=== PATIENT | female | born 1955 | race Caucasian/White ===

== ENCOUNTER 2016-05-10 20:03 | Outpatient (CLI) | payer MEDICAID | END 2016-05-10 20:04 | disposition home or self-care (01) | DX: E78.5 Hyperlipidemia, unspecified (principal); E11.9 Type 2 diabetes mellitus without complications; E03.9 Hypothyroidism, unspecified ==

== ENCOUNTER 2016-11-29 14:38 | Outpatient (CLI) | payer MEDICAID ==
[2016-11-29 19:13] LABS: CALCIUM 8.9 mg/dL (8.5-10.3); CREATININE 1.1 mg/dL (0.4-1.0); POTASSIUM 4.1 mmol/L (3.5-5.0)
[2016-11-29 20:09] LABS: HEMOGLOBIN A1C 0.84 g/dL
== END 2016-11-29 14:39 | disposition home or self-care (01) ==
LOC: LAB.N 14:38
PROVIDERS: ATTEND Family Medicine
DX: E11.9 Type 2 diabetes mellitus without complications (principal); E03.9 Hypothyroidism, unspecified
CPT/HCPCS: 36415; 80048; 83036; 84443

== ENCOUNTER 2016-11-30 09:06 | Outpatient (CLI) | payer MEDICAID ==
--- NOTE | 2016-12-01 13:31 | Mammography Report ---
DIGITAL SCREENING MAMMOGRAM: 11/30/2016 CLINICAL INDICATION: A 61-year-old nulliparous patient for screening. COMPARISON: 10/2015, 09/2014, 08/2013, 09/2012, 09/2011. TECHNIQUE: Routine CC and MLO projections were obtained of the breasts. FINDINGS: Scattered fibroglandular tissue is present within the breasts. There are no dominant jack s, suspicious microcalcifications, or secondary signs of malignancy. In comparison to the previous st udies, there are no significant changes. ASSESSMENT: NO MAMMOGRAPHIC EVIDENCE OF MALIGNANCY. NO SIGNIFICANT INTERVAL CHANGES. RECOMMENDATION: Screening mammography is recommended annually. BI-RADS category 1 - negative. STANDARD QUALIFYING STATEMENTS 1. This examination was reviewed with the aid of Computed-Aided Detection (CAD). 2. A negative or benign imaging report should not delay biopsy if clinically suspicious findings are present. Consider surgical consultation if warranted. More than 5% of cancers are not identified by i maging. 3. Dense breasts may obscure an underlying neoplasm. JOB #: [id number] EXT JOB #:[id number]
== END 2016-11-30 09:07 | disposition home or self-care (01) ==
LOC: DI 09:06
PROVIDERS: ATTEND Family Medicine
DX: Z12.31 Encounter for screening mammogram for malignant neoplasm of breast (principal); Z00.00 Encounter for general adult medical examination without abnormal findings
CPT/HCPCS: 77067

== ENCOUNTER 2017-10-05 08:00 | Outpatient (CLI) | payer MEDICAID ==
[2017-10-05 18:32] LABS: BASOPHILS % (AUTO) 0.7 %; EOSINOPHILS # (AUTO) 0.1 10^3/uL (0.0-0.7); EOSINOPHILS % (AUTO) 1.3 %; HGB - HEMOGLOBIN 12.7 g/dL (12.0-16.0); LYMPHOCYTES # (AUTO) 1.5 10^3/uL (1.5-3.5); LYMPHOCYTES % (AUTO) 24.6 %; MEAN CORPUSCULAR HEMOGLOBIN 28.2 pg (27.0-31.0); MEAN CORPUSCULAR HGB CONC 33.3 g/dL (32.0-36.0); MEAN CORPUSCULAR VOLUME 84.5 fL (81.0-99.0); MEAN PLATELET VOLUME 9.2 fL (7.9-10.8); MONOCYTES # (AUTO) 0.4 10^3/uL (0.0-1.0); MONOCYTES % (AUTO) 7.1 %; NEUTROPHILS # (AUTO) 4.1 10^3/uL (1.5-6.6); NEUTROPHILS % (AUTO) 66.3 %; PLT - PLATELET COUNT 210 10^3/uL (130-450); RED BLOOD COUNT 4.49 10^6/uL (4.20-5.40); RED CELL DISTRIBUTION WIDTH 13.9 % (12.0-15.0); WHITE BLOOD COUNT 6.2 x10^3/uL (4.8-10.8)
[2017-10-05 18:56] LABS: ALBUMIN 3.8 g/dL (3.2-5.5); ALBUMIN/GLOBULIN RATIO 1.3 (1.0-2.2); BILIRUBIN,TOTAL 0.7 mg/dL (0.2-1.0); CALCIUM 9.1 mg/dL (8.5-10.3); CREATININE 1.1 mg/dL (0.4-1.0); TOTAL PROTEIN 6.8 g/dL (6.7-8.2)
[2017-10-05 19:01] LABS: HB2 TOTAL 13.5 g/dL; HEMOGLOBIN A1C 1.01 g/dL
[2017-10-05 19:10] LABS: THYROID STIMULATING HORMONE 1.1 uIU/mL (0.34-5.60)
[2017-10-05 19:12] LABS: FREE T4 (FREE THYROXINE) 1.09 ng/dL (0.58-1.64)
== END 2017-10-05 23:59 | disposition home or self-care (01) ==
LOC: LAB.N 08:00
PROVIDERS: ATTEND Family Medicine
DX: E11.22 Type 2 diabetes mellitus with diabetic chronic kidney disease (principal); N18.3 Chronic kidney disease, stage 3 (moderate); E03.9 Hypothyroidism, unspecified
CPT/HCPCS: 36415; 80053; 83036; 84439; 84443; 85025

== ENCOUNTER 2017-12-03 11:27 | Outpatient (CLI) | payer MEDICAID ==
--- NOTE | 2017-12-04 15:37 | Mammography Report ---
Reason: SCREENING MAMMO Procedure Date: 12/03/2017 Accession Number: [id number] / [id number] Procedure: MGN - Screening Mammo Dig Bilat CPT Code: FULL RESULT: EXAM: Screening Mammo Dig Bilat DATE: 12/03/2017 11:49 AM CLINICAL HISTORY: 62 year-old nulliparous female with history of early menses. TECHNIQUE: Bilateral CC and MLO views were obtained. COMPARISON: 11/30/2016, 10/18/2015, 09/10/2014. FINDINGS: The breasts demonstrate diffuse fatty replacement bilaterally. No suspicious masses, clustered microcalcifications, or regions of architectural distortion are identified. IMPRESSION: Negative examination RECOMMENDATION: Routine annual screening unless otherwise clinically indicated. BIRADS CATEGORY 1: Negative STANDARD QUALIFYING STATEMENTS: 1. This examination was reviewed with the aid of Computer-Aided Detection (CAD). 2. A negative or benign imaging report should not delay biopsy if clinically suspicious findings are present. Consider surgical consultation if warrented. More than 5% of cancers are not identified by imaging. 3. Dense breasts may obscure an underlying neoplasm.
== END 2017-12-03 11:28 | disposition home or self-care (01) ==
LOC: DI.N 11:27
PROVIDERS: ATTEND Radiology Diagnostic Radiology
DX: Z12.31 Encounter for screening mammogram for malignant neoplasm of breast (principal)
CPT/HCPCS: 77067

== ENCOUNTER 2018-01-08 11:15 | Outpatient (CLI) | payer MEDICAID ==
[2018-01-08 19:15] LABS: HB2 TOTAL 13.9 g/dL; HEMOGLOBIN A1C 0.77 g/dL; HEMOGLOBIN A1C % 7.2 % (4.6-6.2)
[2018-01-08 19:16] LABS: ALBUMIN 4.2 g/dL (3.2-5.5); ALBUMIN/GLOBULIN RATIO 1.4 (1.0-2.2); ALKALINE PHOSPHATASE 66 IU/L (42-121); ALT ALANINE AMINOTRANSFERASE 27 IU/L (10-60); AST ASPARTATE AMINOTRANSFERASE 20 IU/L (10-42); BILIRUBIN,TOTAL 0.7 mg/dL (0.2-1.0); BUN - BLOOD UREA NITROGEN 23 mg/dL (6-20); CALCIUM 9.5 mg/dL (8.5-10.3); CARBON DIOXIDE - CO2 28 mmol/L (21-32); CHLORIDE 104 mmol/L (101-111); CHOL/HDL RATIO 3.1 (<4.4); CHOLESTEROL 151 mg/dL; CREATININE 1.1 mg/dL (0.4-1.0); GFR - MDRD 50 (>89); GLUCOSE 121 mg/dL (70-100); HDL CHOLESTEROL 48 mg/dL; LDL CHOLESTEROL,CALCULATED 70 mg/dL; LDL/HDL RATIO 1.5 (<4.4); SODIUM 140 mmol/L (135-145); TOTAL PROTEIN 7.3 g/dL (6.7-8.2); VLDL CHOLESTEROL 33 mg/dL
== END 2018-01-08 11:16 | disposition home or self-care (01) ==
LOC: LAB.WCP 11:15
PROVIDERS: ATTEND Family Medicine
DX: E78.5 Hyperlipidemia, unspecified (principal); E11.9 Type 2 diabetes mellitus without complications
CPT/HCPCS: 36415; 80053; 80061; 83036; 83721

== ENCOUNTER 2018-04-11 14:23 | Outpatient (CLI) | payer MEDICAID ==
[2018-04-11 19:33] LABS: CALCIUM 9.2 mg/dL (8.5-10.3); CREATININE 1.2 mg/dL (0.4-1.0)
[2018-04-11 19:42] LABS: HB2 TOTAL 13.7 g/dL; HEMOGLOBIN A1C 0.8 g/dL; HEMOGLOBIN A1C % 7.5 % (4.6-6.2)
[2018-04-11 19:51] LABS: THYROID STIMULATING HORMONE 1.08 uIU/mL (0.34-5.60)
[2018-04-11 19:53] LABS: FREE T4 (FREE THYROXINE) 1.03 ng/dL (0.58-1.64)
== END 2018-04-11 23:59 | disposition home or self-care (01) ==
LOC: LAB.N 14:23
PROVIDERS: ATTEND Nurse Practitioner
DX: E11.22 Type 2 diabetes mellitus with diabetic chronic kidney disease (principal); N18.3 Chronic kidney disease, stage 3 (moderate); E03.9 Hypothyroidism, unspecified; E55.9 Vitamin D deficiency, unspecified
CPT/HCPCS: 36415; 80048; 82306; 83036; 84439; 84443

== ENCOUNTER 2018-07-11 08:00 | Outpatient (CLI) | payer MEDICAID ==
[2018-07-11 19:25] LABS: ALBUMIN/GLOBULIN RATIO 1.4 (1.0-2.2); ALKALINE PHOSPHATASE 74 IU/L (42-121); ALT ALANINE AMINOTRANSFERASE 37 IU/L (10-60); AST ASPARTATE AMINOTRANSFERASE 25 IU/L (10-42); BILIRUBIN,TOTAL 1.1 mg/dL (0.2-1.0); BUN - BLOOD UREA NITROGEN 16 mg/dL (6-20); CALCIUM 9.2 mg/dL (8.5-10.3); CARBON DIOXIDE - CO2 24 mmol/L (21-32); CHLORIDE 103 mmol/L (101-111); CHOL/HDL RATIO 2.9 (<4.4); CHOLESTEROL 140 mg/dL; CREATININE 1.1 mg/dL (0.4-1.0); GFR - MDRD 50 (>89); GLUCOSE 137 mg/dL (70-100); HDL CHOLESTEROL 48 mg/dL; LDL CHOLESTEROL,CALCULATED 59 mg/dL; LDL/HDL RATIO 1.2 (<4.4); SODIUM 137 mmol/L (135-145); TOTAL PROTEIN 6.8 g/dL (6.7-8.2); VLDL CHOLESTEROL 33 mg/dL
[2018-07-11 19:30] LABS: CREATININE,URINE 175.1 mg/dL; MICROALBUM/CREATININE RATIO,UR 14.3 ug/mg (<30.0); MICROALBUMIN,URINE 2.5 mg/dL (0-300.0)
[2018-07-11 20:02] LABS: HB2 TOTAL 14.2 g/dL; HEMOGLOBIN A1C 0.97 g/dL; HEMOGLOBIN A1C % 8.4 % (4.6-6.2)
== END 2018-07-11 23:59 | disposition home or self-care (01) ==
LOC: LAB.N 08:00
PROVIDERS: ATTEND Nurse Practitioner
DX: E11.9 Type 2 diabetes mellitus without complications (principal)
CPT/HCPCS: 36415; 80053; 80061; 82043; 82570; 83036; 83721; 84443

== ENCOUNTER 2018-07-15 08:00 | Outpatient (CLI) | payer MEDICAID | END 2018-07-15 23:59 | disposition home or self-care (01) | LOC: LAB.N 08:00 | PROVIDERS: ATTEND Nurse Practitioner | DX: E55.9 Vitamin D deficiency, unspecified (principal) | CPT/HCPCS: 36415; 82306; 82652 ==

== ENCOUNTER 2018-07-23 11:53 | Outpatient (CLI) | payer MEDICAID ==
--- NOTE | 2018-07-23 12:30 | XRAY Report ---
Reason: PLANTAR FASCITIS Procedure Date: 07/23/2018 Accession Number: [id number] / [id number] Procedure: XRN - Foot 3 View LT CPT Code: FULL RESULT: EXAM: LEFT FOOT RADIOGRAPHY EXAM DATE: 07/23/2018 12:13 PM. CLINICAL HISTORY: PLANTAR FASCITIS. COMPARISON: 04/13/2015 2:01 PM. TECHNIQUE: 3 views. FINDINGS: Moderate posterior calcaneal and plantar calcaneal bone spurs. No other bony abnormality. Negative for fracture. Joints: Normal. No subluxations. Soft Tissues: Normal. No soft tissue swelling. IMPRESSION: 1. Moderately large posterior calcaneal and plantar calcaneal bone spurs. 2. Otherwise negative examination. No acute osseous abnormality. RADIA
== END 2018-07-23 11:54 | disposition home or self-care (01) ==
LOC: DI.N 11:53
PROVIDERS: ATTEND Nurse Practitioner
DX: M77.32 Calcaneal spur, left foot (principal)

== ENCOUNTER 2018-10-24 08:00 | Outpatient (CLI) | payer MEDICAID ==
[2018-10-24 18:54] LABS: BASOPHILS # (AUTO) 0.1 10^3/uL (0.0-0.1); BASOPHILS % (AUTO) 1.1 %; EOSINOPHILS # (AUTO) 0.1 10^3/uL (0.0-0.7); HGB - HEMOGLOBIN 12.4 g/dL (12.0-16.0); LYMPHOCYTES # (AUTO) 1.7 10^3/uL (1.5-3.5); LYMPHOCYTES % (AUTO) 29.9 %; MEAN CORPUSCULAR HEMOGLOBIN 28.1 pg (27.0-31.0); MEAN PLATELET VOLUME 11.2 fL (7.9-10.8); MONOCYTES # (AUTO) 0.4 10^3/uL (0.0-1.0); MONOCYTES % (AUTO) 7.7 %; NEUTROPHILS # (AUTO) 3.3 10^3/uL (1.5-6.6); NEUTROPHILS % (AUTO) 58.8 %; PLT - PLATELET COUNT 231 10^3/uL (130-450); RED BLOOD COUNT 4.41 10^6/uL (4.20-5.40); RED CELL DISTRIBUTION WIDTH 13.2 % (12.0-15.0); WHITE BLOOD COUNT 5.6 x10^3/uL (4.8-10.8)
[2018-10-24 19:08] LABS: HB2 TOTAL 12.9 g/dL; HEMOGLOBIN A1C 0.76 g/dL; HEMOGLOBIN A1C % 7.5 % (4.6-6.2)
[2018-10-24 19:13] LABS: CREATININE,URINE 171.8 mg/dL; MICROALBUMIN,URINE 2.4 mg/dL (0-300.0)
[2018-10-24 19:21] LABS: ALBUMIN 4.1 g/dL (3.2-5.5); ALBUMIN/GLOBULIN RATIO 1.5 (1.0-2.2); ALKALINE PHOSPHATASE 62 IU/L (42-121); ALT ALANINE AMINOTRANSFERASE 26 IU/L (10-60); AST ASPARTATE AMINOTRANSFERASE 16 IU/L (10-42); BILIRUBIN,TOTAL 0.7 mg/dL (0.2-1.0); BUN - BLOOD UREA NITROGEN 23 mg/dL (6-20); CALCIUM 9.2 mg/dL (8.5-10.3); CARBON DIOXIDE - CO2 24 mmol/L (21-32); CHLORIDE 108 mmol/L (101-111); CHOL/HDL RATIO 2.9 (<4.4); CHOLESTEROL 142 mg/dL; CREATININE 1.1 mg/dL (0.4-1.0); GFR - MDRD 50 (>89); GLUCOSE 113 mg/dL (70-100); HDL CHOLESTEROL 49 mg/dL; LDL CHOLESTEROL,CALCULATED 70 mg/dL; LDL/HDL RATIO 1.4 (<4.4); SODIUM 142 mmol/L (135-145); TOTAL PROTEIN 6.8 g/dL (6.7-8.2); VLDL CHOLESTEROL 23 mg/dL
== END 2018-10-24 23:59 | disposition home or self-care (01) ==
LOC: LAB.N 08:00
PROVIDERS: ATTEND Physician Assistant Medical
DX: E11.9 Type 2 diabetes mellitus without complications (principal); I10 Essential (primary) hypertension
CPT/HCPCS: 36415; 80053; 80061; 82043; 82570; 83036; 83721; 84443; 85025

== ENCOUNTER 2018-12-12 11:35 | Outpatient (CLI) | payer MEDICAID ==
--- NOTE | 2018-12-12 15:55 | Mammography Report ---
Reason: SCREENING MAMMO Procedure Date: 12/12/2018 Accession Number: [id number] / [id number] Procedure: MGN - Screening Mammo Dig Bilat CPT Code: FULL RESULT: EXAM: Screening Mammo Dig Bilat DATE: 12/12/2018 12:00 PM CLINICAL HISTORY: Routine screening TECHNIQUE: (B) - Bilateral CC and MLO views were obtained. COMPARISON: 12/03/2017, 11/30/2016 and 10/18/2015 PARENCHYMAL PATTERN: (A) - The breasts demonstrate scattered fibroglandular densities bilaterally. FINDINGS: No significant interval change. There are no suspicious masses, calcifications, or areas of distortion. IMPRESSION: Negative examination. BI-RADS category 1. RECOMMENDATION: (ANNUAL) - Recommend routine annual screening mammography. BI-RADS CATEGORY: (1) - Negative. STANDARD QUALIFYING STATEMENTS: 1. This examination was not reviewed with the aid of Computer-Aided Detection (CAD). 2. A negative or benign imaging report should not preclude biopsy if clinically suspicious findings are present. 3. Dense breasts may obscure an underlying neoplasm. 4. This examination was reviewed without the aid of 3D breast imaging (tomosynthesis).
== END 2018-12-12 11:36 | disposition home or self-care (01) ==
LOC: DI.N 11:35
DX: Z12.31 Encounter for screening mammogram for malignant neoplasm of breast (principal)
CPT/HCPCS: 77067

== ENCOUNTER 2019-01-07 15:32 | Outpatient (CLI) | payer MEDICAID ==
[2019-01-07 16:23] VITALS: BP 135/90
--- NOTE | 2019-01-07 16:23 | SLEEP CARE CONSULTATION ---
Information from patient questionnaire entered by Laly Silverio. I have reviewed and concur with the information entered by Laly Silverio. This document represents the service I personally performed and the decisions made by me, Darren Armjio MD, [facility]. History of Present Illness Reason for Visit: New patient Chief Complaint: reports: Insomnia, Unrefreshed sleep, Frequent awakenings at night Duration of Symptoms: 12 years Usual bedtime: [id number] Time it takes to fall asleep: 30-120 minutes Snores at night: No Observed to quit breathing while asleep: No Number of times waking at night: 2-3 Reasons for waking at night: reports: Other (unknown reasons) Toss, Turn, or Twitch while sleeping: Yes Recalls having dreams: Yes Usually gets out of bed at: 1200 Feels refreshed in the morning: No Morning headache: Yes (sometimes) Sleepy or fatigued during the day: Yes (sometimes) Ever fallen asleep while driving: No Takes day naps: No Dreams during day naps: No Prior sleep studies: No Additional HPI information: I had the pleasure of seeing Ms. Ren today regarding the possibility of her having a sleep disorder. As you know, she is a 63 year old lady who complains of insomnia since she got . She reports difficulty falling asleep at the beginning of the night and waking up frequently during the night. The patient tells me that she normally goes to bed around 1 2 am, and it takes her approximately 30 - 120 minutes to fall asleep. She has not been told that she snores loudly and irregularly at night. She has never been observed to stop breathing in her sleep. However, she sleeps alone. She can recall waking up on the average of 2 - 3 times during the night. Most of the time she wakes up because of unknown reasons. She has never awakened because of her own snoring, choking, or having to gasp for air. There is a lot of tossing and turning in her sleep. No somniloquy (sleep talking) or somnambulism (sleep walking). Generally she can recall having dreams. In the morning she usually gets up out of the bed around 11 a.m. noon, not feeling refreshed nor rested. She usually does have a morning headache. During the day she does not feel sleepy. Her score on Valders Sleepiness Scale is 1 out of 24. She has never fallen asleep while driving nor has had any accident due to sleepiness. She usually does not take naps during the day. She reports having impaired concentration during the day. Subjective Initial Valders Sleepiness Scale score: 1 Past Medical History Past Medical History: reports: Hypertension, Diabetes, Hypothyroidism, Other (kidney stones, high cholesterol, low vitamin d, ongoing sinus issues; s/p two sinus surgeries) Social History The patient's occupation is not employed. Patient is and lives in [place]. Have you smoked in the past 12 months: No Alcohol use: No Caffeine use: Yes Caffeine amount and frequency: 1 pepsi/day Family History Family history of sleep disordered breathing: No Allergies and Home Medications Drug allergies reviewed: Yes Home medication list reviewed: Yes Allergy and home medication list: Meds: levothyroxine, glimipiride, lisinopril, allopurinol, rosuvastatin, prazosin, montelukast, melatonin, fluticason nasal spray, and insulin Review of Systems Weight loss over past 5 years: 30 Cardiovascular: reports: high blood pressure Respiratory: denies: shortness of breath, wheeze, sputum production, chronic cough, other Gastrointestinal: denies: heartburn, difficulty swallowing, nausea, vomitting, diarrhea, abdominal pain, other Urinary: denies: incontinence, frequency, urgency, impotence, other Neurological: denies: headaches, seizure, head trauma, disorientation, speech dysfunction, gait or balance problems, fainting or unconsciousness, other Psychiatric: denies: Attention Deficit Hyperactivity, anxiety, depression, mood disorder, claustrophobia, other Ear/Nose/Throat: reports: sinus problems Endocrine: reports: thyroid disease Musculoskeletal: denies: joint pain, neck pain, back pain, joint swelling, muscle pain or cramping, mobility problems, other Immunologic: denies: sneezing, rash, itching, allergies to food or environment, other Physical Exam Vital signs obtained and entered by: DR. Armijo Blood Pressure: 135/90 Cuff size: regular Heart Rate: 98 O2 Saturation: 83 Height: 5 ft 5.5 in Weight: 290 lb Body Mass Index: 47.5 BMI Classification: Obesity Class 3 Neck circumference: 15 Mood/affect: normal HEENT: No craniofacial malformation Nostrils: patent to airflow Turbinates: normal Septum: midline Mouth and throat: narrow oropharynx Soft palate: long Hard palate: normal Uvula: normal Uvula visualization: 50% Mallampati Class II Tongue: normal in size Tonsils: absent bilaterally Chin and jaw: Micrognathia Neck: normal w/o lymphadenopathy or thyromegaly Heart: regular rate and rhythm Lungs: clear bilaterally Abdomen: soft Extremities: no edema or clubbing Neurologic: intact Impression and Plan IMPRESSION: 1. Suspected Obstructive Sleep Apnea-Hypopnea Syndrome, as suggested by history of frequent awakenings during the night. Narrow oropharynx and obesity are common predisposing factors for obstructive sleep apnea-hypopnea syndrome. Pathophysiology of sleep-disordered breathing was discussed. I recommend proceeding to polysomnography to confirm the diagnosis and to assess severity. If she has significant sleep disordered breathing, a manual CPAP titration study will also be performed to find the optimal treatment pressure. I informed the patient of what the sleep studies involve and after some discussion, she agreed to proceed. 2. Delayed sleep phase syndrome, causing sleep onset insomnia. Because she wakes up at noon, I advised her to not go to bed until 4 am, assuming the normal sleep requirement of 8 hours a night. The patient, however, would like to get up earlier at 10 pm. I then instructed her to set the alarm clock at that time and not wake up any later. She is to also go outside to be in the sun for half an hour as soon as she wakes up. Then at night, she may go to bed at 2 am. Plan: 1. Schedule polysomnography and return in 1 to 2 weeks after the study to discuss result and initiate therapy. 2. Maintain a regular wake up time and spend no more than 8 hours in bed at night. Avoid naps. 3. Attempt to lose weight. I spent 100% of this 20 minute visit face to face with the patient with greater than 50% of this was spent time counseling the patient and coordination of care.
== END 2019-01-07 15:33 | disposition home or self-care (01) ==
LOC: SC 15:32
PROVIDERS: ATTEND Internal Medicine Pulmonary Disease
DX: G47.8 Other sleep disorders (principal); G47.21 Circadian rhythm sleep disorder, delayed sleep phase type; G47.00 Insomnia, unspecified; E66.9 Obesity, unspecified; Z68.42 Body mass index [BMI] 45.0-49.9, adult
CPT/HCPCS: 99203; 99212

== ENCOUNTER 2019-01-30 13:44 | Outpatient (CLI) | payer MEDICAID ==
[2019-01-30 19:44] LABS: HB2 TOTAL 13.7 g/dL; HEMOGLOBIN A1C 0.88 g/dL
== END 2019-01-30 13:45 | disposition home or self-care (01) ==
LOC: LAB.N 13:44
PROVIDERS: ATTEND Physician Assistant Medical
DX: E11.9 Type 2 diabetes mellitus without complications (principal)
CPT/HCPCS: 36415; 83036

== ENCOUNTER 2019-03-11 19:34 | Outpatient (CLI) | payer MEDICAID | END 2019-03-11 19:35 | disposition home or self-care (01) | LOC: SC 19:34 | PROVIDERS: ATTEND Internal Medicine Pulmonary Disease | DX: G47.61 Periodic limb movement disorder (principal) | CPT/HCPCS: 95810 ==

== ENCOUNTER 2019-04-01 09:31 | Outpatient (CLI) | payer MEDICAID ==
--- NOTE | 2019-04-01 13:31 | XRAY Report ---
Reason: MICROSCOPIC HEMATURIA/PRE OP Procedure Date: 04/01/2019 Accession Number: [id number] / [id number] Procedure: XR - Chest 2 View X-Ray CPT Code: 77257 Final Report FULL RESULT: EXAM: CHEST RADIOGRAPHY EXAM DATE: 04/01/2019 09:58 AM. CLINICAL HISTORY: Microscopic hematuria/pre op. COMPARISON: None. TECHNIQUE: 2 views. FINDINGS: Lungs/Pleura: No focal opacities evident. No pleural effusion. No pneumothorax. Normal volumes. Mediastinum: Heart and mediastinal contours are unremarkable. Other: None. IMPRESSION: No acute cardiopulmonary abnormality. RADIA
== END 2019-04-01 09:32 | disposition home or self-care (01) ==
LOC: DI 09:31
PROVIDERS: ATTEND Urology
DX: Z01.818 Encounter for other preprocedural examination (principal); R31.29 Other microscopic hematuria; Z87.442 Personal history of urinary calculi; E66.01 Morbid (severe) obesity due to excess calories; Z68.42 Body mass index [BMI] 45.0-49.9, adult
CPT/HCPCS: 36415; 71046; 80048; 85025; 93005

== ENCOUNTER 2019-04-01 09:39 | Outpatient (CLI) | payer MEDICAID ==
[2019-04-01 10:00] LABS: BASOPHILS # (AUTO) 0.1 10^3/uL (0.0-0.1); BASOPHILS % (AUTO) 0.7 %; EOSINOPHILS # (AUTO) 0.1 10^3/uL (0.0-0.7); EOSINOPHILS % (AUTO) 1.8 %; LYMPHOCYTES % (AUTO) 27.9 %; MEAN CORPUSCULAR HEMOGLOBIN 27.7 pg (27.0-31.0); MEAN CORPUSCULAR HGB CONC 32.5 g/dL (32.0-36.0); MEAN CORPUSCULAR VOLUME 85.3 fL (81.0-99.0); MEAN PLATELET VOLUME 10.4 fL (7.9-10.8); MONOCYTES # (AUTO) 0.6 10^3/uL (0.0-1.0); NEUTROPHILS # (AUTO) 4.3 10^3/uL (1.5-6.6); NEUTROPHILS % (AUTO) 60.8 %; PLT - PLATELET COUNT 223 10^3/uL (130-450); RED BLOOD COUNT 4.69 10^6/uL (4.20-5.40); WHITE BLOOD COUNT 7.1 x10^3/uL (4.8-10.8)
[2019-04-01 10:13] LABS: CALCIUM 9.1 mg/dL (8.5-10.3); CREATININE 1.1 mg/dL (0.4-1.0)
== END 2019-04-01 09:40 | disposition home or self-care (01) ==
LOC: LAB 09:39
PROVIDERS: ATTEND Urology
DX: Z87.442 Personal history of urinary calculi (principal); R31.29 Other microscopic hematuria; E66.01 Morbid (severe) obesity due to excess calories; Z68.42 Body mass index [BMI] 45.0-49.9, adult
CPT/HCPCS: 36415; 80048; 85025

== ENCOUNTER 2019-04-08 10:10 | Outpatient (CLI) | payer MEDICAID ==
--- NOTE | 2019-04-08 12:45 | SLEEP CARE CONSULTATION ---
Information from patient questionnaire entered by Laly Silverio. I have reviewed and concur with the information entered by Laly Silverio. This document represents the service I personally performed and the decisions made by me, Darren Armijo MD, [facility]. History of Present Illness Initial Watton Sleepiness Scale score: 1 Current Watton Sleepiness Scale score: 0 Additional HPI information: HPI: returned for follow up of the sleep study she had on 03/11/19. The polysomnography showed that the patient had slightly reduced sleep efficiency due to several awakenings after the sleep onset. The sleep architecture was abnormal for sleep fragmentation and reduced amount of time spent in REM sleep. Respiratory monitoring showed no significant sleep disordered breathing (AHI = 3.1) mild hypoxia (katya oxygen saturation of 85% but only 0.06% to the total sl eep time was spent with oxygen saturation below 90%). The patient did not sleep supine during this study (supine AHI = 0; non-supine = 3.14). Snore was moderate to loud in intensity. There was moderate periodic leg movement of sleep contributing to the sleep fragmentation. Cardiac rhythm was normal sinus rhythm without significant arrhythmia. No abnormal behavior (parasomnia) observed during the night. The patient was informed of these findings. I explained to her that moderate periodic leg movement of sleep. The patient reports occasional restless leg sensation at night but is not sure that it causes insomnia. Allergies and Home Medications Drug allergies reviewed: Yes Home medication list reviewed: Yes Review of Systems Review of systems same as previous: Yes Physical Exam Weight: 290 lb Impression and Plan IMPRESSION: 1. Periodic leg movement of sleep, moderate, with occasional restless leg syndrome. The cause of periodic leg movement of sleep is typically unknown. Few known causes are iron deficiency, renal failure, and selective serotonin reuptake inhibitors. Iron and ferritin levels are recommended in addition to the routine blood work. We discussed treatment with a dopamine agonist but the patient does not like the side effects. 2. Circadian rhythm disorder causing insomnia. The patient has delayed sleep phase syndrome and also takes long naps during the day. She is not motivated enough to have a set schedule. I reassured her that overall she is getting adequate sleep because her Watton Sleepiness Scale score is 0. PLAN: 1. Primary care provider may want to check ferritin and iron levels. 2. Continue to avoid sleeping supine. 3. Return for follow up on as needed basis. If later on, she has to sleep part of the night on her back, she should be retested for sleep-disordered breathing. I spent 100% of the 15 minute visit [id number] with the patient with greater than 50% of this was spent time counseling the patient and coordination of care. I spent 100% of this visit face to face with the patient with greater than 50% of this was spent time counseling the patient and coordination of care.
== END 2019-04-08 10:11 | disposition home or self-care (01) ==
LOC: SC 10:10
PROVIDERS: ATTEND Internal Medicine Pulmonary Disease
DX: G47.61 Periodic limb movement disorder (principal); G47.21 Circadian rhythm sleep disorder, delayed sleep phase type
CPT/HCPCS: 99212; 99213

== ENCOUNTER 2019-04-14 06:05 | Day surgery (SDC) | payer MEDICAID ==
[2019-04-14] MEDS ORDERED: CIPROFLOXACIN 400 MG/200 ML 200 ML IV ONE (06:37)
[2019-04-14] MEDS ORDERED: LACTATED RINGERS 1,000 ML IV ONE ×2 (06:42→09:52)
[2019-04-14] MEDS ORDERED: SCOPOLAMINE PATCH TOP ONE (07:18)
--- NOTE | 2019-04-14 07:24 | ANESTHESIA ---
Pre-Anesthesia VS, & Labs - Diagnosis bladder tumor - Procedure TURBT Vital Signs: Temp Pulse Resp BP Pulse Ox 36.4 C L 66 16 155/113 H 99 04/14/19 06:48 04/14/19 06:48 04/14/19 06:48 04/14/19 06:48 04/14/19 06:48 Height 5 ft 5 in Weight (kg) 133.3 kg Body Mass Index 47.5 - NPO >8 hours - Is Patient ?: No - Lab Results Current Lab Results: Laboratory Tests 04/14/19 07:01: POC Whole Bld Glucose 126 H Lab results reviewed: Yes Home Medications and Allergies Home Medications: Ambulatory Orders Clotrimazole 1 applic TP BID PRN 04/08/19 Diclofenac Sodium 2 - 4 gm TP QID PRN 04/08/19 Insulin Detemir [Levemir Flextouch] 20 unit SUBQ DAILY 04/08/19 Melatonin 10 mg PO QPM PRN 04/08/19 Montelukast Sodium 10 mg PO DAILY 04/08/19 Montelukast [Singulair] 10 mg PO DAILY 04/08/19 Prazosin HCl 2 mg PO DAILY 04/08/19 Glimepiride 8 mg PO DAILY 09/19/13 Levothyroxine [Synthroid] 125 mcg PO DAILY 09/19/13 Lisinopril 10 mg PO DAILY 09/19/13 Potassium Citrate [Urocit-K] 10 meq PO DAILY 09/19/13 Rosuvastatin Calcium [Crestor] 10 mg PO DAILY 09/19/13 allopurinoL [Allopurinol] 100 mg PO DAILY 09/19/13 Clotrimazole 1 applic TP BID PRN 04/08/19 Diclofenac Sodium 2 - 4 gm TP QID PRN 04/08/19 Insulin Detemir [Levemir Flextouch] 20 unit SUBQ DAILY 04/08/19 Melatonin 10 mg PO QPM PRN 04/08/19 Montelukast Sodium 10 mg PO DAILY 04/08/19 Montelukast [Singulair] 10 mg PO DAILY 04/08/19 Prazosin HCl 2 mg PO DAILY 04/08/19 Allergies/Adverse Reactions: Allergies Allergy/AdvReac Type Severity Reaction Status Date / Time atorvastatin [From Lipitor] AdvReac muscle Verified 12/31/19 15:34 wasting disease metformin AdvReac diarrhea Verified 04/08/19 15:34 steri strips Allergy Intermediate Blisters Uncoded 09/19/13 14:26 Anes History & Medical History - Anesthetic History Anesthesia Complications: reports: Post-Operative Nausea/Vomiting Family history of Anesthesia Complications: Denies Family history of Malignant Hyperthermia: Denies - Medical History Cardiovascular: reports: Hypertension, High cholesterol Pulmonary: reports: None Gastrointestinal: reports: Colon polyps Urinary: reports: Kidney stones Musculoskeletal: reports: None, Osteoporosis Endocrine/Autoimmune: reports: Type 2 diabetes, HyPOthyroidism Skin: reports: Rosacea Smoking Status: Never smoker - Surgical History General: Colonoscopy Eyes Ears Nose Throat (EENT): Tonsil/Adenoidectomy, Other Urologic: Ureterolithotomy (stones) Gynecologic: Hysterectomy, Oophrectomy Dermatologic: Skin cancer surgery Exam General: Alert, Oriented x3, Cooperative Dental: WNL Mouth Opening: Greater than 4 Fingerbreadths Neck Mobility: Normal Mallampati classification: II Thyromental Distance: greater than 6 cm Respiratory: Lungs clear, Normal breath sounds, No respiratory distress Cardiovascular: Regular rate Neurological: Normal speech Mental/Cognitive Status: Alert/Oriented X3, Normal for patient Cognitive Status: Within normal limits Plan Anesthesia Type: General Consent for Procedure(s) Verified and Reviewed: Yes Code Status: Attempt Resuscitation ASA classification: 2-Mild systemic disease Is this case an emergency?: No
[2019-04-14] MEDS ORDERED: PROPOFOL 200 MG/20 ML VIAL IVP ONE (08:37)
[2019-04-14] MEDS ORDERED: MIDAZOLAM 2 MG/2 ML VIAL IVP ONE (08:37)
[2019-04-14] MEDS ORDERED: ROCURONIUM 50 MG/5 ML VIAL IVP ONE (08:37)
[2019-04-14] MEDS ORDERED: DEXAMETHASONE 4 MG/ML VIAL IVP ONE (08:37)
[2019-04-14] MEDS ORDERED: fentaNYL 100 MCG/2 ML VIAL IVP ONE (08:37)
[2019-04-14] MEDS ORDERED: LIDOCAINE-MPF 2% 5 ML VIAL IM ONE (08:37)
[2019-04-14] MEDS ORDERED: GLYCOPYRROLATE 1 MG/5 ML VIAL IVP ONE (08:37)
[2019-04-14] MEDS ORDERED: ONDANSETRON 4 MG/2 ML VIAL IVP ONE (08:37)
[2019-04-14] MEDS ORDERED: NEOSTIGMINE 1 MG/1 ML 10 ML MDV IVP ONE (08:37)
--- NOTE | 2019-04-14 10:13 | IMMEDIATE POSTOPERATIVE NOTE ---
Immediate Postoperative Note - Procedure Note Procedure Date: 04/14/19 Pre-Op Diagnosis: Bladder tumor Procedure: Cystoscopy, transurethral resection of bladder tumors (2-5cm) Post-Op Diagnosis: Bladder tumors Primary Surgeon: Cl Hernandez MD Finger Buffs Assembler: None Anesthesia Type: Other (General) Findings: Cystoscopy revealed several papillary bladder tumors on L trigone (posterior and lateral to L ureteral orifice)(largest bladder tumor approx. 2-3cm, several other smaller (< 1cm) bladder tumors), no bladder calculi, non-trabeculated bladder, B/L ureteral orifices in normal position, and normal urethra. Bladder tumors were resected using bipolar loop electrocautery. B/L ureteral orifices were seen to be intact and well-preserved at the end of the case. Complications: No complications Estimated Blood Loss (in cc): 5 Drains, Catheters, Devices: 20F Hsieh catheter to straight drainage Specimens and Cultures: L trigone bladder tumor - superficial, L trigone bladder tumors - deep Plan of Care: Patient to be discharged home with Hsieh catheter when stable and to return for office appt. with me in 2-2.5 weeks for post-op visit and trial of void.
[2019-04-14] MEDS ORDERED: HYDROcod/ACETAM 10 MG/325 MG TABLET PO PRN (10:19)
[2019-04-14] MEDS ORDERED: ONDANSETRON 4 MG/2 ML VIAL IVP PRN (10:19)
[2019-04-14] MEDS ORDERED: HYDROmorphone 0.5 MG/0.5 ML SYRINGE IVP PRN (10:19)
[2019-04-14] MEDS ORDERED: ACETAMINOPHEN 1,000 MG/100 ML 100 ML IV ONE (10:35)
[2019-04-14 11:08] VITALS: BP 152/73
--- NOTE | 2019-04-18 20:08 | OPERATIVE REPORT ---
DATE OF SERVICE: 04/14/2019 Physician: Cl Hernandez MD PREOPERATIVE DIAGNOSIS: Bladder tumor. POSTOPERATIVE DIAGNOSIS: Bladder tumors. PROCEDURE PERFORMED: Cystoscopy, transurethral resection of bladder tumors (2-5 cm). SURGEON: Cl Hernandez MD. MCAT INSTRUCTOR: None. ANESTHESIA: General. ESTIMATED BLOOD LOSS: 5 mL SPECIMENS: Left trigone bladder tumor - superficial, left trigone bladder tumors - deep. DRAINS: 20-[place] Hsieh catheter to straight drainage. COMPLICATIONS: None. CONDITION: Stable. FINDINGS: Cystoscopy revealed several papillary bladder tumors on the left trigone (posterior and lateral to left ureteral orifice)(largest bladder tumor approximately 2-3 cm and several other smaller (less than 1 cm) bladder tumors), no bladder calculi, non-trabeculated bladder, bilateral ureteral orifices in normal position, and normal urethra. Bladder tumors were resected using bipolar loop electrocautery. Bilateral ureteral orifices were seen to be intact and well-preserved at the end of the case. INDICATIONS: The patient is a 64-year-old female seen by Dr. Johnson in the office on 03/27/2019 with cystoscopy showing a bladder tumor. The patient now presents for cystoscopy, transurethral resection of bladder tumor. DESCRIPTION OF PROCEDURE: The patient was brought to the operating room and was placed supine on the operating table. Patient was given IV antibiotics. Sequential compression device boots were placed. General anesthesia was administered. The patient was brought down into dorsal lithotomy position. The patient was prepped and draped in standard sterile fashion. A 26-[place] continuous flow resectoscope was placed through the urethral meatus and into the urethra without difficulty. Cystoscopy revealed normal urethra, several papillary bladder tumors on the left trigone (posterior and lateral to left ureteral orifice)(largest bladder tumor approximately 2-3 cm and several other smaller (less than 1 cm) bladder tumors), no bladder calculi, non- trabeculated bladder, and bilateral ureteral orifices in normal position. Bladder tumors were resected in their entirety using bipolar loop electrocautery, and bladder tumors were sent to pathology for permanent specimen. Of note, the left ureteral orifice was able to be preserved. The base of the bladder tumor resected area, including normal surrounding bladder mucosa, were fulgurated using the bipolar loop electrocautery. Excellent hemostasis was achieved. Of note, a portion of the bladder tumor resection was noted to be fairly deep. Bilateral ureteral orifices were seen to be intact and well-preserved at the end of the case, with good efflux of urine seen from bilateral ureteral orifices. The continuous flow resectoscope was removed from the patient. A 22 [place] Hsieh catheter was placed through the urethra and into the bladder without difficulty. The Hsieh catheter balloon was inflated with 10 mL of sterile water. The Hsieh catheter was placed to straight drainage. The Hsieh catheter was able to be irrigated without difficulty. Skin was cleaned and dried. The patient was placed in the supine position. The patient was awakened from general anesthesia and was transferred to the recovery room in stable condition. The patient tolerated the procedure well. POSTOPERATIVE PLAN: Postoperative plan is for the patient to be discharged home with the Hsieh catheter when stable and to return for an office appointment with me in 2 - 2.5 weeks for a postoperative visit and trial of void. Will leave the catheter in for 2 - 2.5 weeks secondary to a portion of the bladder tumor resection being noted to be fairly deep. TD: 04/18/2019 18:56 RAFAL
== END 2019-04-14 06:06 | disposition home or self-care (01) ==
LOC: SDS 06:05
PROVIDERS: ATTEND Urology
PROC: 0TBB8ZZ Excision of Bladder, Via Natural or Artificial Opening Endoscopic (ICD-10-PCS; principal; 2019-04-14 07:30)
DX: C67.0 Malignant neoplasm of trigone of bladder (principal); E66.01 Morbid (severe) obesity due to excess calories; E11.22 Type 2 diabetes mellitus with diabetic chronic kidney disease; I12.9 Hypertensive chronic kidney disease with stage 1 through stage 4 chronic kidney disease, or unspecified chronic kidney disease; N18.9 Chronic kidney disease, unspecified; Z87.442 Personal history of urinary calculi; Z68.42 Body mass index [BMI] 45.0-49.9, adult; Z79.4 Long term (current) use of insulin; Z79.899 Other long term (current) drug therapy
CPT/HCPCS: 52235; J0131; J3490; J7120

== ENCOUNTER 2019-05-05 09:43 | Outpatient (CLI) | payer MEDICAID ==
[2019-05-05 12:05] LABS: BASOPHILS % (AUTO) 0.8 %; EOSINOPHILS # (AUTO) 0.1 10^3/uL (0.0-0.7); EOSINOPHILS % (AUTO) 2.1 %; HGB - HEMOGLOBIN 12.1 g/dL (12.0-16.0); LYMPHOCYTES # (AUTO) 1.6 10^3/uL (1.5-3.5); LYMPHOCYTES % (AUTO) 29.8 %; MEAN CORPUSCULAR HEMOGLOBIN 28.2 pg (27.0-31.0); MEAN CORPUSCULAR HGB CONC 32.3 g/dL (32.0-36.0); MEAN CORPUSCULAR VOLUME 87.4 fL (81.0-99.0); MONOCYTES # (AUTO) 0.4 10^3/uL (0.0-1.0); MONOCYTES % (AUTO) 8.1 %; NEUTROPHILS # (AUTO) 3.1 10^3/uL (1.5-6.6); NEUTROPHILS % (AUTO) 58.6 %; PLT - PLATELET COUNT 235 10^3/uL (130-450); RED BLOOD COUNT 4.29 10^6/uL (4.20-5.40); WHITE BLOOD COUNT 5.3 x10^3/uL (4.8-10.8)
[2019-05-05 12:56] LABS: HB2 TOTAL 12.3 g/dL; HEMOGLOBIN A1C 0.79 g/dL
[2019-05-05 13:19] LABS: % IRON SATURATION 14 % (20-50); IRON 44 ug/dL (28-170); TOTAL IRON BINDING CAPACITY 319 ug/dL (250-450); TRANSFERRIN 228 mg/dL (192-382)
== END 2019-05-05 23:59 | disposition home or self-care (01) ==
LOC: LAB.N 09:43
PROVIDERS: ATTEND Physician Assistant Medical
DX: E11.22 Type 2 diabetes mellitus with diabetic chronic kidney disease (principal); N18.3 Chronic kidney disease, stage 3 (moderate)
CPT/HCPCS: 36415; 82728; 83036; 83540; 84466; 85025

== ENCOUNTER 2019-05-20 06:02 | Day surgery (SDC) | payer MEDICAID ==
[2019-05-20] MEDS ORDERED: LACTATED RINGERS 1,000 ML IV ONE (06:25)
[2019-05-20] MEDS ORDERED: ONDANSETRON 4 MG/2 ML VIAL ONE (07:21)
[2019-05-20] MEDS ORDERED: MIDAZOLAM 2 MG/2 ML VIAL IVP ONE (07:31)
[2019-05-20] MEDS ORDERED: fentaNYL 250 MCG/5 ML VIAL IVP ONE (07:31)
[2019-05-20] MEDS ORDERED: ONDANSETRON 4 MG/2 ML VIAL IVP ONE (07:31)
[2019-05-20 08:53] VITALS: BP 163/76
--- NOTE | 2019-05-20 14:15 | OPERATIVE REPORT ---
Operative Report - General Procedure Date: 05/20/19 Pre-Op Diagnosis: History of colon polyps Procedure Performed: Surveillance Colonoscopy with Biopsies Post Op Diagnosis: Colon Polyps - Procedure Note Primary Surgeon: Shorty Arce MD Anesthesia Provider: RN Anesthesia Technique: Moderate sedation Pathology: 1. Left colon polyps (~65cm) 2. Rectal polyp (~5cm) Indications: 64yo F with history of colon polyps here for surveillance colonoscopy. All risks, benefits, and alternatives discussed and pt wishes to proceed. Findings: 1. Polyps- 2 left colon, 1 rectal 2. Diverticulosis- few small, scattered lesions in sigmoid 3. Very small external hemorrhoids Complications: none - Other Other Information/Narrative: The patient was brought to the GI suite and placed in the left lateral decubitus position on the examination table. After placement of appropriate monitors, the patient was given incremental doses of Versed and Fentanyl until an appropriate level of sedation was achieved. A time out was held per SCOAP protocol. A digital rectal examination was performed and did not reveal any masses or obstructing lesions but very small external hemorrhoids are noted. The colon oscope was gently passed into the patient's anus and the entire colon navigated to the level of the cecum with minimal difficulty. Prep was adequate. Once in the cecum, the scope was slowly withdrawn being sure to go before and beyond all mucosal folds and prominences as able to get a thorough examination. Two left colon polyps measuring 1 and 2mm, respectively, were removed with cold jumbo forceps. A 1mm rectal polyp is also removed with cold jumbo forceps. Other findings include a few scattered diverticulae. At the level of the rectal vault, the scope was retroflexed and the internal anal canal was examined. The scope was straightened and air aspirated from the colon. The instrument was removed from the patient's body and the procedure was concluded. The patient was allowed to awaken from sedation without difficulty and taken to the post-anesthesia care unit in good condition.
== END 2019-05-20 06:03 | disposition home or self-care (01) ==
LOC: SDS 06:02
PROVIDERS: ATTEND Surgery
PROC: 0DBP8ZZ Excision of Rectum, Via Natural or Artificial Opening Endoscopic (ICD-10-PCS; 2019-05-20)
PROC: 0DBG8ZZ Excision of Left Large Intestine, Via Natural or Artificial Opening Endoscopic (ICD-10-PCS; principal; 2019-05-20 07:30)
DX: Z12.11 Encounter for screening for malignant neoplasm of colon (principal); D12.4 Benign neoplasm of descending colon; K63.5 Polyp of colon; K62.1 Rectal polyp; K57.30 Diverticulosis of large intestine without perforation or abscess without bleeding; K64.4 Residual hemorrhoidal skin tags; E11.9 Type 2 diabetes mellitus without complications; I10 Essential (primary) hypertension
CPT/HCPCS: 45380; J3010; J7120

== ENCOUNTER 2019-08-07 12:03 | Outpatient (CLI) | payer MEDICAID ==
[2019-08-07 18:16] LABS: BASOPHILS # (AUTO) 0.1 10^3/uL (0.0-0.1); BASOPHILS % (AUTO) 0.8 %; EOSINOPHILS # (AUTO) 0.1 10^3/uL (0.0-0.7); EOSINOPHILS % (AUTO) 1.5 %; HGB - HEMOGLOBIN 12.8 g/dL (12.0-16.0); LYMPHOCYTES # (AUTO) 1.8 10^3/uL (1.5-3.5); LYMPHOCYTES % (AUTO) 24.4 %; MEAN CORPUSCULAR HEMOGLOBIN 28.1 pg (27.0-31.0); MEAN CORPUSCULAR HGB CONC 32.1 g/dL (32.0-36.0); MEAN CORPUSCULAR VOLUME 87.5 fL (81.0-99.0); MONOCYTES # (AUTO) 0.6 10^3/uL (0.0-1.0); MONOCYTES % (AUTO) 8.2 %; NEUTROPHILS # (AUTO) 4.7 10^3/uL (1.5-6.6); NEUTROPHILS % (AUTO) 64.7 %; PLT - PLATELET COUNT 238 10^3/uL (130-450); RED BLOOD COUNT 4.56 10^6/uL (4.20-5.40); RED CELL DISTRIBUTION WIDTH 13.2 % (12.0-15.0); WHITE BLOOD COUNT 7.3 x10^3/uL (4.8-10.8)
[2019-08-07 18:36] LABS: HB2 TOTAL 13.9 g/dL; HEMOGLOBIN A1C 0.9 g/dL; HEMOGLOBIN A1C % 8.1 % (4.6-6.2)
[2019-08-07 18:43] LABS: ALBUMIN/GLOBULIN RATIO 1.4 (1.0-2.2); ALKALINE PHOSPHATASE 81 IU/L (42-121); ALT ALANINE AMINOTRANSFERASE 24 IU/L (10-60); AST ASPARTATE AMINOTRANSFERASE 19 IU/L (10-42); BILIRUBIN,TOTAL 1.1 mg/dL (0.2-1.0); BUN - BLOOD UREA NITROGEN 16 mg/dL (6-20); CALCIUM 9.2 mg/dL (8.5-10.3); CARBON DIOXIDE - CO2 27 mmol/L (21-32); CHLORIDE 106 mmol/L (101-111); CHOL/HDL RATIO 3.6 (<4.4); CHOLESTEROL 158 mg/dL; CREATININE 1.1 mg/dL (0.4-1.0); CREATININE,URINE 186.3 mg/dL; GLUCOSE 124 mg/dL (70-100); HDL CHOLESTEROL 44 mg/dL; LDL CHOLESTEROL,CALCULATED 89 mg/dL; MICROALBUM/CREATININE RATIO,UR 13.4 ug/mg (<30.0); MICROALBUMIN,URINE 2.5 mg/dL (0-300.0); SODIUM 140 mmol/L (135-145); TOTAL PROTEIN 6.9 g/dL (6.7-8.2); VLDL CHOLESTEROL 25 mg/dL
== END 2019-08-07 23:59 | disposition home or self-care (01) ==
LOC: LAB.WCP 12:03
PROVIDERS: ATTEND Family Medicine
DX: E11.22 Type 2 diabetes mellitus with diabetic chronic kidney disease (principal); I12.9 Hypertensive chronic kidney disease with stage 1 through stage 4 chronic kidney disease, or unspecified chronic kidney disease; N18.3 Chronic kidney disease, stage 3 (moderate); E03.9 Hypothyroidism, unspecified
CPT/HCPCS: 36415; 80053; 80061; 82043; 82570; 83036; 83721; 84443; 85025

== ENCOUNTER 2019-11-10 08:00 | Outpatient (CLI) | payer MEDICAID ==
[2019-11-10 19:10] LABS: HB2 TOTAL 13.6 g/dL; HEMOGLOBIN A1C 0.75 g/dL; HEMOGLOBIN A1C % 7.2 % (4.6-6.2)
== END 2019-11-10 23:59 | disposition home or self-care (01) ==
LOC: LAB.WCP 08:00
PROVIDERS: ATTEND Family Medicine
DX: E11.9 Type 2 diabetes mellitus without complications (principal)
CPT/HCPCS: 36415; 83036

== ENCOUNTER 2019-11-13 08:00 | Outpatient (CLI) | payer MEDICAID | END 2019-11-13 23:59 | disposition home or self-care (01) | LOC: LAB.R 08:00 | PROVIDERS: ATTEND Family Medicine | DX: R30.0 Dysuria (principal) | CPT/HCPCS: 87086 ==

== ENCOUNTER 2020-01-26 10:54 | Outpatient (CLI) | payer MEDICAID ==
--- NOTE | 2020-01-27 16:44 | Mammography Report ---
BILATERAL DIGITAL SCREENING MAMMOGRAM 3D/2D: 01/26/2020 CLINICAL: Routine screening. Comparison is made to exams dated: 12/12/2018 mammogram, 12/03/2017 mammogram, and 11/30/2016 mammogram - [facility]. The tissue of both breasts is predominantly fatty. No significant masses, calcifications, or other findings are seen in either breast. There has been no significant interval change. IMPRESSION: NEGATIVE There is no mammographic evidence of malignancy. A 1 year screening mammogram is recommended. This exam was interpreted at Station ID: [id number]. NOTE: For mammograms, a report in lay terms will be sent to the patient. Approximately 15% of breast malignancies will not be visualized mammographically. In the management of a palpable breast mass, a negative mammogram must not discourage biopsy of a clinically suspicious lesion. Electronically Signed By: David lamb/penrad:01/26/2020 15:03:49 ACR BI-RADS Category 1: Negative 3341F PARENCHYMAL PATTERN: (F) - The breast(s) demonstrate(s) diffuse fatty replacement. BI-RADS CATEGORY: (1) - 1 RECOMMENDATION: (ANNUAL) - Recommend routine annual screening mammography. [id number] 1 year screening LATERALITY: (B)
== END 2020-01-26 10:55 | disposition home or self-care (01) ==
LOC: DI.N 10:54
PROVIDERS: ATTEND Family Medicine
DX: Z12.31 Encounter for screening mammogram for malignant neoplasm of breast (principal)
CPT/HCPCS: 77063; 77067

== ENCOUNTER 2020-01-29 08:00 | Outpatient (CLI) | payer MEDICAID ==
[2020-01-29 19:06] LABS: BASOPHILS % (AUTO) 0.7 %; EOSINOPHILS # (AUTO) 0.1 10^3/uL (0.0-0.7); EOSINOPHILS % (AUTO) 1.8 %; HGB - HEMOGLOBIN 12.4 g/dL (12.0-16.0); LYMPHOCYTES # (AUTO) 1.5 10^3/uL (1.5-3.5); LYMPHOCYTES % (AUTO) 24.6 %; MEAN CORPUSCULAR HEMOGLOBIN 27.9 pg (27.0-31.0); MEAN CORPUSCULAR HGB CONC 31.8 g/dL (32.0-36.0); MEAN CORPUSCULAR VOLUME 87.8 fL (81.0-99.0); MONOCYTES # (AUTO) 0.4 10^3/uL (0.0-1.0); MONOCYTES % (AUTO) 7.3 %; NEUTROPHILS # (AUTO) 3.9 10^3/uL (1.5-6.6); NEUTROPHILS % (AUTO) 65.3 %; PLT - PLATELET COUNT 217 10^3/uL (130-450); RED BLOOD COUNT 4.44 10^6/uL (4.20-5.40); RED CELL DISTRIBUTION WIDTH 13.2 % (12.0-15.0)
[2020-01-29 19:30] LABS: ALBUMIN 3.8 g/dL (3.2-5.5); ALBUMIN/GLOBULIN RATIO 1.4 (1.0-2.2); ALKALINE PHOSPHATASE 78 IU/L (42-121); ALT ALANINE AMINOTRANSFERASE 30 IU/L (10-60); AST ASPARTATE AMINOTRANSFERASE 22 IU/L (10-42); BILIRUBIN,TOTAL 0.8 mg/dL (0.2-1.0); BUN - BLOOD UREA NITROGEN 16 mg/dL (6-20); CALCIUM 9.2 mg/dL (8.5-10.3); CARBON DIOXIDE - CO2 26 mmol/L (21-32); CHLORIDE 103 mmol/L (101-111); CHOL/HDL RATIO 3.1 (<4.4); CHOLESTEROL 155 mg/dL; CREATININE 0.9 mg/dL (0.4-1.0); GLUCOSE 141 mg/dL (70-100); HDL CHOLESTEROL 50 mg/dL; LDL CHOLESTEROL,CALCULATED 83 mg/dL; LDL/HDL RATIO 1.7 (<4.4); SODIUM 138 mmol/L (135-145); TOTAL PROTEIN 6.6 g/dL (6.7-8.2); VLDL CHOLESTEROL 22 mg/dL
== END 2020-01-29 23:59 | disposition home or self-care (01) ==
LOC: LAB.WCP 08:00
PROVIDERS: ATTEND Family Medicine
DX: I10 Essential (primary) hypertension (principal); E78.5 Hyperlipidemia, unspecified; E11.9 Type 2 diabetes mellitus without complications
CPT/HCPCS: 36415; 80053; 80061; 83036; 83721; 84443; 85025

== ENCOUNTER 2020-02-11 08:00 | Outpatient (CLI) | payer MEDICAID ==
[2020-02-11 18:39] LABS: BILIRUBIN,URINE NEGATIVE (NEGATIVE); GLUCOSE, URINE (UA) NEGATIVE (NEGATIVE); KETONES,URINE (UA) NEGATIVE (NEGATIVE); LEUKOCYTE ESTERASE, URINE NEGATIVE (NEGATIVE); NITRITE,URINE NEGATIVE (NEGATIVE); OCCULT BLOOD,URINE NEGATIVE (NEGATIVE); PH,URINE 5.5 PH (5.0-7.5); PROTEIN,URINE NEGATIVE (NEGATIVE); UROBILINOGEN,URINE 0.2 (NORMAL) E.U./dL (NORMAL)
[2020-02-11 18:49] LABS: BACTERIA,URINE None Seen /HPF (None Seen); CLARITY,URINE CLOUDY (CLEAR); RBC,URINE None Seen /HPF (0-5); SQUAMOUS EPITHELIAL CELL,UR NONE SEEN (<= Few)
== END 2020-02-11 23:59 | disposition home or self-care (01) ==
LOC: LAB.WCP 08:00
PROVIDERS: ATTEND Nurse Practitioner
DX: R30.0 Dysuria (principal)
CPT/HCPCS: 81001; 87086

== ENCOUNTER 2020-04-27 08:00 | Outpatient (CLI) | payer MEDICAID ==
[2020-04-27 19:14] LABS: CREATININE 1.1 mg/dL (0.4-1.0)
[2020-04-27 19:36] LABS: CREATININE,URINE 262.1 mg/dL; MICROALBUM/CREATININE RATIO,UR 23.3 ug/mg (<30.0); MICROALBUMIN,URINE 6.1 mg/dL (0-300.0)
[2020-04-27 20:16] LABS: HEMOGLOBIN A1c% 9.2 % (4.27-6.07)
== END 2020-04-27 23:59 | disposition home or self-care (01) ==
LOC: LAB.WCP 08:00
PROVIDERS: ATTEND Internal Medicine
DX: E11.9 Type 2 diabetes mellitus without complications (principal); E03.9 Hypothyroidism, unspecified
CPT/HCPCS: 36415; 80048; 82043; 82570; 83036

== ENCOUNTER 2020-07-02 13:30 | Outpatient (CLI) | payer MEDICAID ==
[2020-07-02 18:17] LABS: CALCIUM 9.4 mg/dL (8.5-10.3); CREATININE 1.7 mg/dL (0.4-1.0); POTASSIUM 4.9 mmol/L (3.5-5.0)
[2020-07-02 18:32] LABS: CREATININE,URINE 266.1 mg/dL; MICROALBUM/CREATININE RATIO,UR 170.6 ug/mg (<30.0); MICROALBUMIN,URINE 45.4 mg/dL (0-300.0)
[2020-07-02 18:45] LABS: ESTIMATED AVERAGE GLUCOSE 180 mg/dL (70-100); HEMOGLOBIN A1c% 7.9 % (4.27-6.07)
== END 2020-07-02 23:59 | disposition home or self-care (01) ==
LOC: LAB.WCP 13:30
PROVIDERS: ATTEND Internal Medicine
DX: E11.29 Type 2 diabetes mellitus with other diabetic kidney complication (principal)
CPT/HCPCS: 36415; 80048; 82043; 82570; 83036

== ENCOUNTER 2020-08-03 13:14 | Outpatient (CLI) | payer MEDICAID ==
--- NOTE | 2020-08-03 14:41 | CT Report ---
PROCEDURE: Sinuses INDICATIONS: CHRONIC PANSINUSITIS, NASAL OBSTRUCTION TECHNIQUE: Noncontrast 3.0 mm axial images acquired from the frontal sinuses to the mid-sella, with coronal and sagittal reformats. For radiation dose reduction, the following was used: automated exposure control , adjustment of mA and/or kV according to patient size. COMPARISON: None. FINDINGS: Image quality: Excellent. Maxillary Sinuses: No bony remodeling or destruction. Bilateral antrectomy has been performed. Right maxillary sinus attention cyst is present. Ethmoid Air Cells: No bony remodeling or destruction. Sinuses are clear. Sphenoid Sinuses: No bony remodeling or destruction. Sinuses are clear. Frontal Sinuses: No bony remodeling or destruction. Sinuses are clear. Ostiomeatal Complexes: Bilateral antrectomies have been performed which are patent. No Jason cells. Miscellaneous: Visualized intra-orbital contents are normal. No hector bullosa. No nasal septal de viation. IMPRESSION: 1. Post surgical sequelae. 2. Right maxillary sinus retention cyst. Reviewed by: Danni Doherty MD on 08/03/2020 2:39 PM PDT Approved by: Danni Doherty MD on 08/03/2020 2:39 PM PDT Station ID: [id number]
== END 2020-08-03 13:15 | disposition home or self-care (01) ==
LOC: DI 13:14
PROVIDERS: ATTEND Otolaryngology
DX: J34.1 Cyst and mucocele of nose and nasal sinus (principal)

== ENCOUNTER 2020-09-03 08:00 | Outpatient (CLI) | payer MEDICAID ==
[2020-09-03 19:15] LABS: CREATININE,URINE 303.1 mg/dL; MICROALBUMIN,URINE 18.5 mg/dL (0-300.0)
== END 2020-09-03 23:59 | disposition home or self-care (01) ==
LOC: LAB.N 08:00
PROVIDERS: ATTEND Internal Medicine
DX: E11.29 Type 2 diabetes mellitus with other diabetic kidney complication (principal); R39.9 Unspecified symptoms and signs involving the genitourinary system
CPT/HCPCS: 82043; 82570; 87077; 87086; 87181

== ENCOUNTER 2020-09-21 13:00 | Outpatient (CLI) | payer MEDICAID ==
[2020-09-21 18:07] LABS: CALCIUM 9.5 mg/dL (8.5-10.3); CREATININE 1.2 mg/dL (0.4-1.0); POTASSIUM 4.4 mmol/L (3.5-5.0)
[2020-09-21 20:24] LABS: ESTIMATED AVERAGE GLUCOSE 260 mg/dL (70-100); HEMOGLOBIN A1c% 10.7 % (4.27-6.07)
== END 2020-09-21 13:01 | disposition home or self-care (01) ==
LOC: LAB.N 13:00
PROVIDERS: ATTEND Internal Medicine
DX: E11.29 Type 2 diabetes mellitus with other diabetic kidney complication (principal)
CPT/HCPCS: 36415; 80048; 83036

== ENCOUNTER 2021-01-03 11:15 | Outpatient (CLI) | payer MEDICAID ==
[2021-01-03 18:45] LABS: CREATININE,URINE 218.6 mg/dL; MICROALBUM/CREATININE RATIO,UR 6.9 ug/mg (<30.0); MICROALBUMIN,URINE 1.5 mg/dL (0-300.0)
[2021-01-03 18:46] LABS: BUN - BLOOD UREA NITROGEN 21 mg/dL (6-20); CALCIUM 9.1 mg/dL (8.5-10.3); CARBON DIOXIDE - CO2 27 mmol/L (21-32); CHLORIDE 106 mmol/L (101-111); CHOL/HDL RATIO 2.8 (<4.4); CHOLESTEROL 153 mg/dL; CREATININE 1.1 mg/dL (0.4-1.0); GFR - MDRD 50 (>89); GLUCOSE 79 mg/dL (70-100); HDL CHOLESTEROL 55 mg/dL; LDL CHOLESTEROL,CALCULATED 81 mg/dL; LDL/HDL RATIO 1.5 (<4.4); POTASSIUM 4.2 mmol/L (3.5-5.0); SODIUM 140 mmol/L (135-145); TRIGLYCERIDES 86 mg/dL; VLDL CHOLESTEROL 17 mg/dL
[2021-01-03 20:24] LABS: ESTIMATED AVERAGE GLUCOSE 166 mg/dL (70-100); HEMOGLOBIN A1c% 7.4 % (4.27-6.07)
== END 2021-01-03 23:59 | disposition home or self-care (01) ==
LOC: LAB.WCP 11:15
PROVIDERS: ATTEND Internal Medicine
DX: E11.29 Type 2 diabetes mellitus with other diabetic kidney complication (principal)
CPT/HCPCS: 36415; 80048; 80061; 82043; 82570; 83036; 83721

== ENCOUNTER 2021-02-03 11:27 | Outpatient (CLI) | payer MEDICAID ==
--- NOTE | 2021-02-04 09:11 | Mammography Report ---
BILATERAL DIGITAL SCREENING MAMMOGRAM 3D/2D: 02/03/2021 CLINICAL: Routine screening. Comparison is made to exams dated: 01/26/2020 mammogram, 12/12/2018 mammogram, 12/03/2017 mammogram, mammogram, 10/18/2015 mammogram, and 09/10/2014 mammogram - [facility]. The t issue of both breasts is predominantly fatty. No significant masses, calcifications, or other findings are seen in either breast. There has been no significant interval change. IMPRESSION: NEGATIVE There is no mammographic evidence of malignancy. A 1 year screening mammogram is recommended. This exam was interpreted at Station ID: [id number]. NOTE: For mammograms, a report in lay terms will be sent to the patient. Approximately 15% of breast malignancies will not be visualized mammographically. In the management of a palpable breast mass, a negative mammogram must not discourage biopsy of a clinically suspicious lesion. Electronically Signed By: Asif Medrano acr/penrad:02/03/2021 13:18:37 ACR BI-RADS Category 1: Negative 3341F PARENCHYMAL PATTERN: (F) - The breast(s) demonstrate(s) diffuse fatty replacement. BI-RADS CATEGORY: (1) - 1 RECOMMENDATION: (ANNUAL) - Recommend routine annual screening mammography. [id number] 1 year screening LATERALITY: (B)
== END 2021-02-03 11:28 | disposition home or self-care (01) ==
LOC: DI 11:27
PROVIDERS: ATTEND Internal Medicine
DX: Z12.31 Encounter for screening mammogram for malignant neoplasm of breast (principal)

== ENCOUNTER 2021-04-11 08:00 | Outpatient (CLI) | payer MEDICAID ==
[2021-04-11 20:57] LABS: BUN - BLOOD UREA NITROGEN 24 mg/dL (6-20); CALCIUM 9.2 mg/dL (8.5-10.3); CARBON DIOXIDE - CO2 26 mmol/L (21-32); CHLORIDE 103 mmol/L (101-111); CHOL/HDL RATIO 2.7 (<4.4); CHOLESTEROL 153 mg/dL; CREATININE 1.1 mg/dL (0.4-1.0); GFR - MDRD 50 (>89); GLUCOSE 88 mg/dL (70-100); HDL CHOLESTEROL 56 mg/dL; LDL CHOLESTEROL,CALCULATED 81 mg/dL; LDL/HDL RATIO 1.4 (<4.4); SODIUM 140 mmol/L (135-145); TRIGLYCERIDES 81 mg/dL; VLDL CHOLESTEROL 16 mg/dL
[2021-04-11 21:04] LABS: CREATININE,URINE 150.6 mg/dL; MICROALBUM/CREATININE RATIO,UR 4.6 ug/mg (<30.0); MICROALBUMIN,URINE 0.7 mg/dL (0-300.0)
[2021-04-11 21:41] LABS: ESTIMATED AVERAGE GLUCOSE 163 mg/dL (70-100); HEMOGLOBIN A1c% 7.3 % (4.27-6.07)
== END 2021-04-11 23:59 ==
LOC: LAB.WCP 08:00
PROVIDERS: ATTEND Internal Medicine
DX: E11.29 Type 2 diabetes mellitus with other diabetic kidney complication (principal)
CPT/HCPCS: 36415; 80048; 80061; 82043; 82570; 83036; 83721

== ENCOUNTER 2021-08-12 11:13 | Outpatient (CLI) | payer MEDICARE, MEDICAID ==
[2021-08-12 18:15] LABS: CALCIUM 9.2 mg/dL (8.5-10.3); CREATININE 1.1 mg/dL (0.4-1.0); POTASSIUM 4.1 mmol/L (3.5-5.0)
[2021-08-12 18:37] LABS: THYROID STIMULATING HORMONE 1.84 uIU/mL (0.34-5.60)
[2021-08-12 21:10] LABS: ESTIMATED AVERAGE GLUCOSE 200 mg/dL (70-100); HEMOGLOBIN A1c% 8.6 % (4.27-6.07)
== END 2021-08-12 11:14 | disposition home or self-care (01) ==
LOC: LAB.N 11:13
PROVIDERS: ATTEND Internal Medicine
DX: E11.29 Type 2 diabetes mellitus with other diabetic kidney complication (principal); E03.9 Hypothyroidism, unspecified
CPT/HCPCS: 36415; 80048; 83036; 84443

== ENCOUNTER 2022-01-09 12:10 | Outpatient (CLI) | payer MEDICARE ==
[2022-01-09 18:27] LABS: ALBUMIN/GLOBULIN RATIO 1.3 (1.0-2.2); ALKALINE PHOSPHATASE 69 IU/L (42-121); ALT ALANINE AMINOTRANSFERASE 31 IU/L (10-60); AST ASPARTATE AMINOTRANSFERASE 22 IU/L (10-42); BASOPHILS # (AUTO) 0.1 10^3/uL (0.0-0.1); BASOPHILS % (AUTO) 0.9 %; BILIRUBIN,TOTAL 0.8 mg/dL (0.2-1.0); BUN - BLOOD UREA NITROGEN 23 mg/dL (6-20); CALCIUM 9.3 mg/dL (8.5-10.3); CARBON DIOXIDE - CO2 26 mmol/L (21-32); CHLORIDE 104 mmol/L (101-111); CHOL/HDL RATIO 2.7 (<4.4); CHOLESTEROL 151 mg/dL; CREATININE 1.2 mg/dL (0.4-1.0); EOSINOPHILS # (AUTO) 0.1 10^3/uL (0.0-0.7); EOSINOPHILS % (AUTO) 1.5 %; GFR - MDRD 45 (>89); GLUCOSE 183 mg/dL (70-100); HDL CHOLESTEROL 56 mg/dL; LDL CHOLESTEROL,CALCULATED 73 mg/dL; LDL/HDL RATIO 1.3 (<4.4); LYMPHOCYTES # (AUTO) 1.7 10^3/uL (1.5-3.5); LYMPHOCYTES % (AUTO) 25.5 %; MEAN CORPUSCULAR HEMOGLOBIN 28.6 pg (27.0-31.0); MEAN CORPUSCULAR HGB CONC 32.5 g/dL (32.0-36.0); MEAN CORPUSCULAR VOLUME 87.9 fL (81.0-99.0); MEAN PLATELET VOLUME 10.9 fL (7.9-10.8); MONOCYTES # (AUTO) 0.5 10^3/uL (0.0-1.0); MONOCYTES % (AUTO) 8.2 %; NEUTROPHILS # (AUTO) 4.2 10^3/uL (1.5-6.6); NEUTROPHILS % (AUTO) 63.3 %; PLT - PLATELET COUNT 261 10^3/uL (130-450); POTASSIUM 4.5 mmol/L (3.5-5.0); RED BLOOD COUNT 4.55 10^6/uL (4.20-5.40); RED CELL DISTRIBUTION WIDTH 13.4 % (12.0-15.0); SODIUM 137 mmol/L (135-145); TOTAL PROTEIN 7.1 g/dL (6.7-8.2); TRIGLYCERIDES 108 mg/dL; VLDL CHOLESTEROL 22 mg/dL; WHITE BLOOD COUNT 6.6 x10^3/uL (4.8-10.8)
[2022-01-09 18:28] LABS: CREATININE,URINE 298.3 mg/dL; MICROALBUM/CREATININE RATIO,UR 13.7 ug/mg (<30.0); MICROALBUMIN,URINE 4.1 mg/dL (0-300.0)
[2022-01-09 18:31] LABS: THYROID STIMULATING HORMONE 0.97 uIU/mL (0.34-5.60)
[2022-01-09 20:20] LABS: ESTIMATED AVERAGE GLUCOSE 174 mg/dL (70-100); HEMOGLOBIN A1c% 7.7 % (4.27-6.07)
== END 2022-01-09 12:11 | disposition home or self-care (01) ==
LOC: LAB.N 12:10
PROVIDERS: ATTEND Internal Medicine
DX: I10 Essential (primary) hypertension (principal); E11.29 Type 2 diabetes mellitus with other diabetic kidney complication; E03.9 Hypothyroidism, unspecified
CPT/HCPCS: 36415; 80053; 80061; 82043; 82570; 83036; 83721; 84443; 85025

== ENCOUNTER 2022-01-23 10:55 | Outpatient (CLI) | payer MEDICARE ==
--- NOTE | 2022-01-23 13:29 | DEXA Report ---
PROCEDURE: Dexa Spine and/or Hip INDICATIONS: POST MENOPAUSAL TECHNIQUE: Dual energy x-ray absorptiometry (DXA) was performed on a SnapOne System. Regions measur ed are the AP Spine, femoral neck, and if needed forearm. COMPARISON: None. FINDINGS: Lumbar Spine: Bone Mineral Density 1.424 g/cm/cm,T score 2.0, previous 1.483 density Left Hip: Bone Mineral Density 0.820 g/cm/cm,T score -1.5, previous 1.125 density Left Femoral Neck: Bone Mineral Density 0.792 g/cm/cm, T score -1.8, osteopenia (T score greater or equal to -1.0: NORMAL) (T score from -1.1 to -2.4: OSTEOPENIA) (T score less than or equal to -2.5 to: OSTEOPOROSIS) Impression: 1. Worsening left hip osteopenia 2. Improving bone mineral density in the lumbar spine Patients with diagnosis of osteoporosis or osteopenia should have regular bone mineral density assess ment. For those eligible for Medicare, routine testing is allowed once every 2 years. Testing frequ ency can be increased for patients who have rapidly progressing disease or for those who are receivin g medical therapy to restore bone mass. Reviewed by: Andi Alonso MD on 01/23/2022 12:27 PM MAYTE Approved by: Andi Alonso MD on 01/23/2022 12:27 PM MAYTE Station ID: [id number]
== END 2022-01-23 10:56 | disposition home or self-care (01) ==
LOC: DI 10:55
PROVIDERS: ATTEND Internal Medicine
DX: M85.89 Other specified disorders of bone density and structure, multiple sites (principal); Z78.0 Asymptomatic menopausal state

== ENCOUNTER 2022-02-16 11:14 | Outpatient (CLI) | payer MEDICARE ==
--- NOTE | 2022-02-17 15:39 | Mammography Report ---
BILATERAL DIGITAL SCREENING MAMMOGRAM 3D/2D: 02/16/2022 CLINICAL: Routine screening. Comparison is made to exams dated: 02/03/2021 mammogram, 01/26/2020 mammogram, and 12/12/2018 mammogra m - [facility]. Both breasts are almost entirely fatty (category a/<25% glandular tissue). No significant masses, calcifications, or other findings are seen in either breast. There has been no significant interval change. IMPRESSION: NEGATIVE There is no mammographic evidence of malignancy. A 1 year screening mammogram is recommended. Based on the Tyrer Cuzick model (a risk assessment model) the patients lifetime risk is 5.0% and her 10 year risk is 2.4%. According to the ACR, ACS, and NCCN guidelines, an annual breast MRI exam viktor g with mammogram is recommended if the patients lifetime risk is 20% or greater. This exam was interpreted at Station ID: [id number]. NOTE: For mammograms, a report in lay terms will be sent to the patient. Approximately 15% of breast malignancies will not be visualized mammographically. In the management of a palpable breast mass, a negative mammogram must not discourage biopsy of a clinically suspicious lesion. Electronically Signed By: David lamb/antonio:02/17/2022 08:18:27 ACR BI-RADS Category 1: Negative 3341F PARENCHYMAL PATTERN: (F) - The breast(s) demonstrate(s) diffuse fatty replacement. BI-RADS CATEGORY: (1) - 1 RECOMMENDATION: (ANNUAL) - Recommend routine annual screening mammography. [id number] 1 year screening LATERALITY: (B)
== END 2022-02-16 11:15 | disposition home or self-care (01) ==
LOC: DI 11:14
PROVIDERS: ATTEND Internal Medicine
DX: Z12.31 Encounter for screening mammogram for malignant neoplasm of breast (principal)

== ENCOUNTER 2022-07-20 11:43 | Outpatient (CLI) | payer MEDICARE ==
[2022-07-20 18:12] LABS: ALBUMIN 3.8 g/dL (3.2-5.5); ALBUMIN/GLOBULIN RATIO 1.3 (1.0-2.2); BILIRUBIN,TOTAL 0.6 mg/dL (0.2-1.0); CREATININE 1.1 mg/dL (0.4-1.0); POTASSIUM 4.4 mmol/L (3.5-5.0); TOTAL PROTEIN 6.7 g/dL (6.7-8.2); URIC ACID 5.7 mg/dL (2.6-7.2)
[2022-07-20 18:15] LABS: CREATININE,URINE 165.3 mg/dL; MICROALBUM/CREATININE RATIO,UR 14.5 ug/mg (<30.0); MICROALBUMIN,URINE 2.4 mg/dL (0-300.0)
[2022-07-20 19:53] LABS: ESTIMATED AVERAGE GLUCOSE 217 mg/dL (70-100); HEMOGLOBIN A1c% 9.2 % (4.27-6.07)
== END 2022-07-20 11:44 | disposition home or self-care (01) ==
LOC: LAB.N 11:43
PROVIDERS: ATTEND Internal Medicine
DX: E11.29 Type 2 diabetes mellitus with other diabetic kidney complication (principal); Z87.442 Personal history of urinary calculi
CPT/HCPCS: 36415; 80053; 82043; 82570; 83036; 84550

== ENCOUNTER 2023-01-18 11:52 | Outpatient (CLI) | payer MEDICARE ==
[2023-01-18 17:48] LABS: BASOPHILS # (AUTO) 0.1 10^3/uL (0.0-0.1); BASOPHILS % (AUTO) 0.9 %; EOSINOPHILS # (AUTO) 0.1 10^3/uL (0.0-0.7); EOSINOPHILS % (AUTO) 1.9 %; HCT - HEMATOCRIT 39.2 % (37.0-47.0); HGB - HEMOGLOBIN 12.4 g/dL (12.0-16.0); LYMPHOCYTES # (AUTO) 1.3 10^3/uL (1.5-3.5); LYMPHOCYTES % (AUTO) 21.3 %; MEAN CORPUSCULAR HEMOGLOBIN 27.9 pg (27.0-31.0); MEAN CORPUSCULAR HGB CONC 31.6 g/dL (32.0-36.0); MEAN CORPUSCULAR VOLUME 88.3 fL (81.0-99.0); MEAN PLATELET VOLUME 10.6 fL (7.9-10.8); MONOCYTES # (AUTO) 0.6 10^3/uL (0.0-1.0); MONOCYTES % (AUTO) 9.5 %; NEUTROPHILS # (AUTO) 3.9 10^3/uL (1.5-6.6); NEUTROPHILS % (AUTO) 66.1 %; PLT - PLATELET COUNT 237 10^3/uL (130-450); RED BLOOD COUNT 4.44 10^6/uL (4.20-5.40); RED CELL DISTRIBUTION WIDTH 13.4 % (12.0-15.0); WHITE BLOOD COUNT 5.9 x10^3/uL (4.8-10.8)
[2023-01-18 18:06] LABS: ALBUMIN/GLOBULIN RATIO 1.6 (1.0-2.2); ALKALINE PHOSPHATASE 93 IU/L (42-121); ALT ALANINE AMINOTRANSFERASE 30 IU/L (10-60); AST ASPARTATE AMINOTRANSFERASE 19 IU/L (10-42); BILIRUBIN,TOTAL 0.7 mg/dL (0.2-1.0); BUN - BLOOD UREA NITROGEN 18 mg/dL (6-20); CALCIUM 9.4 mg/dL (8.5-10.3); CARBON DIOXIDE - CO2 29 mmol/L (21-32); CHLORIDE 104 mmol/L (101-111); CHOL/HDL RATIO 2.5 (<4.4); CHOLESTEROL 152 mg/dL; CREATININE 1.1 mg/dL (0.6-1.3); GFR - MDRD 50 (>89); GLUCOSE 259 mg/dL (74-104); HDL CHOLESTEROL 60 mg/dL; LDL CHOLESTEROL,CALCULATED 66 mg/dL; LDL/HDL RATIO 1.1 (<4.4); POTASSIUM 4.5 mmol/L (3.5-4.5); SODIUM 138 mmol/L (135-145); TOTAL PROTEIN 6.5 g/dL (6.4-8.9); TRIGLYCERIDES 129 mg/dL (48-352); VLDL CHOLESTEROL 26 mg/dL
[2023-01-18 18:15] LABS: CREATININE,URINE 151.4 mg/dL; MICROALBUM/CREATININE RATIO,UR 20.5 ug/mg (<30.0); MICROALBUMIN,URINE 3.1 mg/dL; THYROID STIMULATING HORMONE 1.53 uIU/mL (0.34-5.60)
[2023-01-18 20:32] LABS: ESTIMATED AVERAGE GLUCOSE 206 mg/dL (70-100); HEMOGLOBIN A1c% 8.8 % (4.27-6.07)
== END 2023-01-18 11:53 | disposition home or self-care (01) ==
LOC: LAB.N 11:52
PROVIDERS: ATTEND Internal Medicine
DX: E11.29 Type 2 diabetes mellitus with other diabetic kidney complication (principal); E78.5 Hyperlipidemia, unspecified; E03.9 Hypothyroidism, unspecified; I12.9 Hypertensive chronic kidney disease with stage 1 through stage 4 chronic kidney disease, or unspecified chronic kidney disease
CPT/HCPCS: 36415; 80053; 80061; 82043; 82570; 83036; 83721; 84443; 85025

== ENCOUNTER 2023-01-25 11:57 | Outpatient (CLI) | payer MEDICARE ==
--- NOTE | 2023-01-25 15:12 | XRAY Report ---
PROCEDURE: Knee 2 View BILAT INDICATIONS: KNEE JOINT PAIN, BILATERAL TECHNIQUE: 2 views of the right and left knee(s) were acquired. COMPARISON: None. FINDINGS: Bones: Severe bilateral knee medial compartment osteoarthritis with joint space narrowing, osseous hy pertrophy and subchondral sclerosis. Mild bilateral knee lateral and patellofemoral compartment osteo arthritis with osseous hypertrophy. Soft tissues: Trace bilateral knee joint effusions.. No suspicious soft tissue calcifications or mass es. IMPRESSION: Severe bilateral knee medial compartment osteoarthritis. Mild bilateral knee lateral and patellofemoral compartment osteoarthritis Reviewed by: Cat Woods MD, PhD on 01/25/2023 3:11 PM PDT Approved by: Cat Woods MD, PhD on 01/25/2023 3:11 PM PDT Station ID: [id number]
== END 2023-01-25 11:58 | disposition home or self-care (01) ==
LOC: DI 11:57
PROVIDERS: ATTEND Internal Medicine
DX: M17.0 Bilateral primary osteoarthritis of knee (principal)

== ENCOUNTER 2023-03-05 13:56 | Outpatient (CLI) | payer MEDICARE ==
--- NOTE | 2023-03-05 15:32 | Ultrasound Report ---
PROCEDURE: Retroperitoneal INDICATIONS: HIST OF KIDNEY STONES TECHNIQUE: Real-time scanning was performed of the retroperitoneal organs, with image documentation. COMPARISON: 05/09/2015. FINDINGS: Kidneys: Kidneys are normal in size. Right kidney measures 11.1 cm long; left kidney measures 9.9 c m long. Right renal cortical thickness is 1.74 cm; left renal cortical thickness is 1.44 cm. No jessie id masses, or nephrolithiasis. There is mild left-sided hydronephrosis. Bladder: Pre-void bladder volume is 164 mL. Post-void residual is 0 mL. Pre-void images demonstrat e no intraluminal masses or stones. On pre-void images, both ureteral jets are noted with color Dopp ler interrogation. (Of note, ureteral jets may not be detectable in up to 25% of cases due to insuff icient differences in specific gravity between ureteral and bladder urine). Miscellaneous: No free abdominal fluid. IMPRESSION: Mild left-sided hydronephrosis. Otherwise normal renal and bladder ultrasound. If further evaluation is indicated a CT of the abdomen and pelvis without contrast may be of further value. Reviewed by: Ankur Baird MD on 03/05/2023 3:31 PM PST Approved by: Ankur Baird MD on 03/05/2023 3:31 PM PST Station ID: [id number]
== END 2023-03-05 13:57 | disposition home or self-care (01) ==
LOC: DI 13:56
PROVIDERS: ATTEND Urology
DX: Z87.442 Personal history of urinary calculi (principal); N13.30 Unspecified hydronephrosis

== ENCOUNTER 2023-03-06 11:20 | Outpatient (CLI) | payer MEDICARE ==
--- NOTE | 2023-03-07 10:08 | Mammography Report ---
BILATERAL DIGITAL SCREENING MAMMOGRAM 3D/2D: 03/06/2023 CLINICAL: Routine screening. Comparison is made to exams dated: 02/16/2022 mammogram, 02/03/2021 mammogram, 01/26/2020 mammogram, 12/12/2018 mammogram, 12/03/2017 mammogram, and 11/30/2016 mammogram - [facility]. Both breasts are almost entirely fatty (category a/<25% glandular tissue). No significant masses, calcifications, or other findings are seen in either breast. There has been no significant interval change. IMPRESSION: NEGATIVE There is no mammographic evidence of malignancy. A 1 year screening mammogram is recommended. Based on the Tyrer Cuzick model (a risk assessment model) the patients lifetime risk is 4.4% and her 10 year risk is 2.2%. According to the ACR, ACS, and NCCN guidelines, an annual breast MRI exam viktor g with mammogram is recommended if the patients lifetime risk is 20% or greater. This exam was interpreted at Station ID: [id number]. NOTE: For mammograms, a report in lay terms will be sent to the patient. Approximately 15% of breast malignancies will not be visualized mammographically. In the management of a palpable breast mass, a negative mammogram must not discourage biopsy of a clinically suspicious lesion. Electronically Signed By: Homar valdez/antonio:03/06/2023 18:36:58 letter sent: No_Letter ACR BI-RADS Category 1: Negative 3341F PARENCHYMAL PATTERN: (F) - The breast(s) demonstrate(s) diffuse fatty replacement. BI-RADS CATEGORY: (1) - 1 Mammogram [id number] 1 year screening LATERALITY: (B)
== END 2023-03-06 11:21 | disposition home or self-care (01) ==
LOC: DI 11:20
DX: Z12.31 Encounter for screening mammogram for malignant neoplasm of breast (principal)

== ENCOUNTER 2023-03-19 06:20 | Day surgery (SDC) | payer MEDICARE ==
[~2023-03-19 06:20] MED LIST: ceFAZolin 2 GM VIAL ONE
[2023-03-19] MEDS ORDERED: LACTATED RINGERS 1,000 ML IV ONE ×2 (06:40→07:57)
[2023-03-19 07:21] LABS: BILIRUBIN,URINE NEGATIVE (NEGATIVE); GLUCOSE, URINE (UA) NEGATIVE (NEGATIVE); KETONES,URINE (UA) NEGATIVE (NEGATIVE); LEUKOCYTE ESTERASE, URINE NEGATIVE (NEGATIVE); NITRITE,URINE NEGATIVE (NEGATIVE); OCCULT BLOOD,URINE NEGATIVE (NEGATIVE); PROTEIN,URINE NEGATIVE (NEGATIVE); UROBILINOGEN,URINE 0.2 (NORMAL) E.U./dL (NORMAL)
[2023-03-19 07:23] LABS: CLARITY,URINE CLEAR (CLEAR)
[2023-03-19] MEDS ORDERED: LIDOCAINE 2% URO-JET 5 ML SYRINGE UR ONE ×2 (07:26→07:49)
[2023-03-19] MEDS ORDERED: ceFAZolin 1 GM VIAL ONE (07:35)
[2023-03-19 07:51] LABS: BACTERIA,URINE Few /HPF (None Seen); RBC,URINE 0-5 /HPF (0-5); SQUAMOUS EPITHELIAL CELL,UR RARE Squamous (<= Few); WBC,URINE 0-3 /HPF (0-5)
--- NOTE | 2023-03-19 07:59 | Discharge Plan ---
Discharge Plan Problem Reviewed?: Yes Disposition: Home, Self Care Activity Restrictions: No Restrictions Shower Restrictions: No Driving Restrictions: No Additional Instructions or Follow Up instructions: You will be contacted for follow-up in 6 months for another cystoscopy No Smoking: If you smoke, Please STOP! Call for help. Follow-up with: Abelino Darling MD [Primary Care Provider] -
--- NOTE | 2023-03-19 08:02 | OPERATIVE REPORT ---
Operative Report - General Procedure Date: 03/19/23 Planned Procedure: Cystoscopy with fulguration Pre-Op Diagnosis: bladder lesion Procedure Performed: cystoscopy with fulguration of lesion 0.5cm Post Op Diagnosis: bladder lesion - Procedure Note Primary Surgeon: Jonny Anesthesia Technique: Local Estimated Blood Loss (mL): 0 Findings: 0.5cm papillary lesion on left posterior wall Complications: none - Other Other Information/Narrative: After informed consent was obtained the patient was brought to the OR and laid in the dorsolithotomy position. Antibiotics were delivered. A formal timeout was performed reconfirming the patient and procedure. The patient was prepped and draped in usual sterile fashion. A Uro-Jet was placed for local anesthesia. Using a 22 [place] cystoscope we advanced easily into the urinary bladder. The bladder was inspected and full there was only 1 mass/lesion this was located on the left posterior bladder wall that was about 0.5 cm in size and papillary. Using a Bugbee electrode this lesion was fulgurated completely. There was excellent hemostasis. The bladder was emptied and this concluded the procedure. Patient tolerated the procedure very well and was brought to the PACU without further incident. She will follow-up in 6 months time for cystoscopy in the office for bladder tumor surveillance.
[2023-03-19 08:14] VITALS: BP 181/99; O2SAT 98
== END 2023-03-19 06:21 | disposition home or self-care (01) ==
LOC: SDS 06:20
PROVIDERS: ATTEND Urology
DX: N32.9 Bladder disorder, unspecified (principal); E11.22 Type 2 diabetes mellitus with diabetic chronic kidney disease; N18.31 Chronic kidney disease, stage 3a; I12.9 Hypertensive chronic kidney disease with stage 1 through stage 4 chronic kidney disease, or unspecified chronic kidney disease; E66.01 Morbid (severe) obesity due to excess calories; Z68.43 Body mass index [BMI] 50.0-59.9, adult; Z79.4 Long term (current) use of insulin; Z79.84 Long term (current) use of oral hypoglycemic drugs
CPT/HCPCS: 52224; 81001; J7120; 87086

== ENCOUNTER 2023-04-04 14:02 | Outpatient (CLI) | payer MEDICARE ==
[2023-04-04 18:23] LABS: CALCIUM 9.2 mg/dL (8.5-10.3); POTASSIUM 4.4 mmol/L (3.5-4.5)
[2023-04-04 21:10] LABS: ESTIMATED AVERAGE GLUCOSE 163 mg/dL (70-100); HEMOGLOBIN A1c% 7.3 % (4.27-6.07)
== END 2023-04-04 14:03 | disposition home or self-care (01) ==
LOC: LAB.N 14:02
PROVIDERS: ATTEND Internal Medicine
DX: E11.29 Type 2 diabetes mellitus with other diabetic kidney complication (principal)
CPT/HCPCS: 36415; 80048; 83036

== ENCOUNTER 2023-08-23 13:29 | Outpatient (CLI) | payer MEDICARE ==
[2023-08-23 17:39] LABS: BASOPHILS # (AUTO) 0.1 10^3/uL (0.0-0.1); BASOPHILS % (AUTO) 0.9 %; BILIRUBIN,URINE NEGATIVE (NEGATIVE); EOSINOPHILS # (AUTO) 0.1 10^3/uL (0.0-0.7); EOSINOPHILS % (AUTO) 1.4 %; GLUCOSE, URINE (UA) NEGATIVE (NEGATIVE); HCT - HEMATOCRIT 40.3 % (37.0-47.0); KETONES,URINE (UA) NEGATIVE (NEGATIVE); LEUKOCYTE ESTERASE, URINE NEGATIVE (NEGATIVE); LYMPHOCYTES % (AUTO) 30.3 %; MEAN CORPUSCULAR HEMOGLOBIN 28.5 pg (27.0-31.0); MEAN CORPUSCULAR HGB CONC 32.3 g/dL (32.0-36.0); MEAN CORPUSCULAR VOLUME 88.4 fL (81.0-99.0); MEAN PLATELET VOLUME 11.2 fL (7.9-10.8); MONOCYTES # (AUTO) 0.5 10^3/uL (0.0-1.0); MONOCYTES % (AUTO) 7.6 %; NEUTROPHILS # (AUTO) 3.8 10^3/uL (1.5-6.6); NEUTROPHILS % (AUTO) 59.3 %; NITRITE,URINE NEGATIVE (NEGATIVE); OCCULT BLOOD,URINE NEGATIVE (NEGATIVE); PLT - PLATELET COUNT 236 10^3/uL (130-450); PROTEIN,URINE NEGATIVE (NEGATIVE); RED BLOOD COUNT 4.56 10^6/uL (4.20-5.40); RED CELL DISTRIBUTION WIDTH 13.1 % (12.0-15.0); UROBILINOGEN,URINE 0.2 (NORMAL) E.U./dL (NORMAL); WHITE BLOOD COUNT 6.4 x10^3/uL (4.8-10.8)
[2023-08-23 17:49] LABS: BACTERIA,URINE None Seen /HPF (None Seen); CLARITY,URINE CLEAR (CLEAR); RBC,URINE 0-5 /HPF (0-5); SQUAMOUS EPITHELIAL CELL,UR RARE Squamous (<= Few); WBC,URINE 0-3 /HPF (0-5)
[2023-08-23 17:56] LABS: ALBUMIN 4.1 g/dL (3.2-5.5); ALBUMIN/GLOBULIN RATIO 1.6 (1.0-2.2); ALKALINE PHOSPHATASE 72 IU/L (42-121); ALT ALANINE AMINOTRANSFERASE 24 IU/L (10-60); AST ASPARTATE AMINOTRANSFERASE 18 IU/L (10-42); BILIRUBIN,TOTAL 0.7 mg/dL (0.2-1.0); BUN - BLOOD UREA NITROGEN 23 mg/dL (6-20); CALCIUM 9.7 mg/dL (8.5-10.3); CARBON DIOXIDE - CO2 29 mmol/L (21-32); CHLORIDE 107 mmol/L (101-111); CHOL/HDL RATIO 2.5 (<4.4); CHOLESTEROL 132 mg/dL; CREATININE 1.2 mg/dL (0.6-1.3); GFR - MDRD 45 (>89); GLUCOSE 173 mg/dL (74-104); HDL CHOLESTEROL 52 mg/dL; LDL CHOLESTEROL,CALCULATED 58 mg/dL; LDL/HDL RATIO 1.1 (<4.4); POTASSIUM 4.4 mmol/L (3.5-4.5); SODIUM 140 mmol/L (135-145); TOTAL PROTEIN 6.7 g/dL (6.4-8.9); TRIGLYCERIDES 110 mg/dL (48-352); VLDL CHOLESTEROL 22 mg/dL
[2023-08-23 18:03] LABS: CREATININE,URINE 202.9 mg/dL; MICROALBUM/CREATININE RATIO,UR 9.4 ug/mg (<30.0); MICROALBUMIN,URINE 1.9 mg/dL
[2023-08-23 20:34] LABS: ESTIMATED AVERAGE GLUCOSE 169 mg/dL (70-100); HEMOGLOBIN A1c% 7.5 % (4.27-6.07)
== END 2023-08-23 13:30 | disposition home or self-care (01) ==
LOC: LAB.N 13:29
PROVIDERS: ATTEND Internal Medicine
DX: I12.9 Hypertensive chronic kidney disease with stage 1 through stage 4 chronic kidney disease, or unspecified chronic kidney disease (principal); E11.22 Type 2 diabetes mellitus with diabetic chronic kidney disease; N18.9 Chronic kidney disease, unspecified; E78.5 Hyperlipidemia, unspecified; C67.9 Malignant neoplasm of bladder, unspecified
CPT/HCPCS: 36415; 80053; 80061; 81001; 82043; 82570; 83036; 83721; 85025; 87086

== ENCOUNTER 2023-12-17 06:24 | Day surgery (SDC) | payer MEDICARE ==
[2023-12-17] MEDS: LACTATED RINGERS 1,000 ML IV ONE (06:35)
[2023-12-17] MEDS ORDERED: LIDOCAINE 2% URO-JET 5 ML SYRINGE UR ONE ×2 (06:55→07:08)
[2023-12-17] MEDS ORDERED: iohexoL-240 10 ML VIAL IVP ONE (06:55)
[2023-12-17] MEDS: LIDOCAINE 2% URO-JET 5 ML SYRINGE IS ONE (07:58)
[2023-12-17 07:59] VITALS: BP 164/73; O2SAT 97
--- NOTE | 2023-12-17 08:01 | Discharge Plan ---
Discharge Plan Problem Reviewed?: Yes Disposition: Home, Self Care Condition: Good Diet: Regular Activity Restrictions: No Restrictions Shower Restrictions: No Driving Restrictions: No Instruction Topics: Cystoscopy Additional Instructions or Follow Up instructions: You have an appointment to see Dr. Fuller on December 25 at 3:15 PM. Please arrive 10 minutes early No Smoking: If you smoke, Please STOP! Call for help. Follow-up with: Vinh Fuller MD [Provider Admit Priv/Credential] -
--- NOTE | 2023-12-17 08:05 | OPERATIVE REPORT ---
Operative Report - General Procedure Date: 12/17/23 Planned Procedure: Cystoscopy, fulguration of bladder lesion Pre-Op Diagnosis: bladder lesion Procedure Performed: Cystoscopy, fulguration of bladder lesion Post Op Diagnosis: bladder lesion - Procedure Note Primary Surgeon: Jonny Anesthesia Provider: yvonne Anesthesia Technique: Local Pathology: none Estimated Blood Loss (mL): 0 Findings: Old scar on left lateral bladder wall. Small 2 mm mucosal lesion inferomedial to this, 2 other small mucosal irregularities nearby. All fulgurated - Other Other Information/Narrative: After informed consent was obtained the patient was brought to the OR and placed in the dorsolithotomy position. A timeout was performed reconfirmed the patient, procedure and laterality. A Uro-Jet was placed for local. A 22 Tamazight scope was Mccurdy ease into urinary bladder. Bladder was inspected in full. There was an old scar on left lateral bladder wall. Small 2 mm mucosal lesion inferomedial to this, 2 other small mucosal irregularities nearby. Using a Bugbee monopolar electrode at a power of 40 we fulgurated these lesions. There was no bleeding. Her bladder was emptied and Uro-Jet was placed. This concluded procedure the patient tolerated procedure well. She is brought to PACU that further incident. She we will follow-up in a week's time for discussion of intravesical therapies
== END 2023-12-17 06:25 | disposition home or self-care (01) ==
LOC: SDS 06:24
PROVIDERS: ATTEND Urology
DX: C67.9 Malignant neoplasm of bladder, unspecified (principal)
CPT/HCPCS: 52224; J7120; Q9966

== ENCOUNTER 2023-12-28 11:16 | Outpatient (CLI) | payer MEDICARE ==
[2023-12-28 17:55] LABS: BILIRUBIN,URINE SMALL (NEGATIVE); GLUCOSE, URINE (UA) NEGATIVE (NEGATIVE); KETONES,URINE (UA) 15 mg/dL (NEGATIVE); LEUKOCYTE ESTERASE, URINE NEGATIVE (NEGATIVE); NITRITE,URINE NEGATIVE (NEGATIVE); OCCULT BLOOD,URINE NEGATIVE (NEGATIVE); PH,URINE 5.5 PH (5.0-7.5); PROTEIN,URINE NEGATIVE (NEGATIVE); UROBILINOGEN,URINE 0.2 (NORMAL) E.U./dL (NORMAL)
[2023-12-28 18:03] LABS: CLARITY,URINE CLOUDY (CLEAR)
[2023-12-28 18:06] LABS: RBC,URINE 0-5 /HPF (0-5); SQUAMOUS EPITHELIAL CELL,UR NONE SEEN (<= Few); WBC,URINE 0-3 /HPF (0-5)
[2023-12-28 18:07] LABS: AMORPHOUS SEDIMENT,UR Marked /LPF; BACTERIA,URINE None Seen /HPF (None Seen)
[2023-12-28 18:28] LABS: CALCIUM 9.5 mg/dL (8.5-10.3); CREATININE 1.4 mg/dL (0.6-1.3); POTASSIUM 4.4 mmol/L (3.5-4.5)
[2023-12-28 18:31] LABS: THYROID STIMULATING HORMONE 1.48 uIU/mL (0.34-5.60)
[2023-12-28 21:26] LABS: ESTIMATED AVERAGE GLUCOSE 163 mg/dL (70-100); HEMOGLOBIN A1c% 7.3 % (4.27-6.07)
== END 2023-12-28 11:17 | disposition home or self-care (01) ==
LOC: LAB.N 11:16
PROVIDERS: ATTEND Internal Medicine
DX: I12.9 Hypertensive chronic kidney disease with stage 1 through stage 4 chronic kidney disease, or unspecified chronic kidney disease (principal); C67.9 Malignant neoplasm of bladder, unspecified; E11.29 Type 2 diabetes mellitus with other diabetic kidney complication; E03.9 Hypothyroidism, unspecified
CPT/HCPCS: 36415; 80048; 81001; 83036; 84443; 87086